=== PATIENT | female | born 1960 | race Caucasian/White ===

== ENCOUNTER 2017-01-28 23:01 | Inpatient (IN) | payer OTHER ==
[~2017-01-28] VITALS: Ht 170.2 cm; Wt 75.7 kg
[~2017-01-28 23:01] MED LIST: CETI10TA22 PO; CHOL200074 PO; FLUT100D IH; MULT1TAB52 PO; OMEG1CAP6 PO; PROAIR HFA8.5 GM INH
[2017-01-29] VITALS (9 sets, daily range): BP systolic 121–145; BP diastolic 51–80
[2017-01-29] MEDS: IV NORMAL SALINE 1000ML BAG 1,000 ML IV SCH ×3 (01:03→22:43)
[2017-01-29] MEDS: ONDANSETRON PF 4 MG/2 ML VIAL. IV PRN ×3 (01:59→14:59)
[2017-01-29] MEDS: MORPHINE SULFATE 4 MG/ML DISP.SYRIN. IV PRN ×6 (01:59→14:59)
[2017-01-29] MEDS ORDERED: fentaNYL PF VIAL 100 MCG/2 ML VIAL IV PRN ×3 (07:00→18:15)
[2017-01-29 07:32] LABS: BASO % 0 % (0-3); EOS % 0 % (0-3); HEMATOCRIT 33.3 % (36.0-47.0); HEMOGLOBIN 11.1 g/dL (12.0-15.5); LYMPH % 10 % (24-48); MEAN CORPUSCULAR HEMOGLOBIN 31 pg (25-35); MEAN CORPUSCULAR HGB CONC 33 g/dL (31-37); MEAN CORPUSCULAR VOLUME 95 fL (79-100); MONO % 5 % (0-9); NEUT % 84 % (31-73); PLATELET COUNT 203 x10^3/uL (140-400); RED BLOOD COUNT 3.52 x10^6/uL (3.50-5.40); RED CELL DISTRIBUTION WIDTH 12.8 % (11.5-14.5); WHITE BLOOD COUNT 9.9 x10^3/uL (4.0-11.0)
[2017-01-29 07:59] LABS: CALCIUM 8.7 mg/dL (8.5-10.1); CREATININE 0.8 mg/dL (0.6-1.0); GFR 74.2; POTASSIUM 4.1 mmol/L (3.5-5.1)
[2017-01-29] MEDS ORDERED: IOHEXOL 350 MG/ML 100 ML VIAL. PO ONE ×2 (08:00→14:00)
[2017-01-29] MEDS ORDERED: CONTRAST GIVEN MC PRN ×2 (08:15→14:00)
--- NOTE | 2017-01-29 09:40 | PDOC2 ---
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 Identification/Chief Complaint Chief Complaint abdominal pain Problems: Source Source: Chart review, Patient History of Present Illness Reason for Visit: Underwent laparoscopic appendectomy with Dr Cross on 01/23, her surgery had no complications, she discharged home on 01/25. She reports has had some cramping periumbilical since going home and having 1 watery stool each morning. Yesterday was the last stool. By evening the cramping pain intensified. She started vomiting and came to ER for evaluation. CT at [facility] was concerning for a sbo vs internal hernia Attempted SBFT this AM, however could not even start exam due to vomiting. No flatus or stool since admission she does feel bloated, pain is improved, although she has recently received pain meds Past Medical History Cardiovascular: No pertinent hx Pulmonary: No pertinent hx, Bronchitis, Other GI: No pertinent hx Heme/Onc: No pertinent hx Hepatobiliary: No pertinent hx Psych: No pertinent hx Rheumatologic: No pertinent hx Infectious disease: Bacterial vaginosis Renal/: No pertinent hx Endocrine: No pertinent hx Past Surgical History Past Surgical History: Appendectomy Family History Family History: Hypertension Social History ALCOHOL: none Drugs: None Current Medications Current Medications Current Medications Morphine Sulfate 4 mg PRN Q2HR PRN IV PAIN Last administered on 01/29/17 08:32 ; Start 01/29/17 at 01:00 Ondansetron HCl (Zofran) 4 mg PRN Q6HRS PRN IV NAUSEA/VOMITING Last administered on 01/29/17 08:32; Start 01/29/17 at 01:00 Sodium Chloride 1,000 ml @ 100 mls/hr Q10H IV Last administered on 01/29/17 01 :03; Start 01/29/17 at 00:45 Iohexol (Omnipaque 350 Mg/ml) 400 ml 1X ONCE PO ; Start 01/29/17 at 08:00; Stop 01/29/17 at 08:03; Status DC Info (Do NOT chart on this entry -- for MONITORING) 1 each PRN DAILY PRN MC SEE COMMENTS; Start 01/29/17 at 08:15; Stop 01/31/17 at 08:14 Active Scripts Active Flovent 100MCG Diskus (Fluticasone Propionate) 100 Mcg Disk.w.dev 1 Puff IH BID Proair Hfa Inhaler (Albuterol Sulfate) 8.5 Gm Hfa.aer.ad 1 Puff INH PRN Q6HRS PRN Reported Zyrtec (Cetirizine Hcl) 10 Mg Tablet 1 Tab PO DAILY Fish Oil 1,000 Mg Capsule (Viola-3 Fatty Acids/Fish Oil) 1 Each Capsule 1 Each PO Vitamin D-3 (Cholecalciferol (Vitamin D3)) 2,000 Unit Capsule 2,000 Unit PO Multivitamins (Multivitamin) 1 Each Tablet 1 Tab PO DAILY Allergies Allergies: Coded Allergies: No Known Drug Allergies (Unverified , 01/23/17) ROS General: YES: Chills, No: Other (fevers) PSYCHOLOGICAL ROS: No: Anxiety, Depression Eyes: No Blurry vision, No Double vision HEENT: No: Heacaches, Sore Throat Hematological and Lymphatic: No: Bleeding Problems, Blood Clots Respiratory: No: Cough, Shortness of breath Cardiovascular: No Chest Pain, No Palpitations Gastrointestinal: Yes Other (see hpi) Genitourinary: No Dysuria, No Hematuria Musculoskeletal: No Joint Pain, No Muscle Pain Neurological: No Impaired Coord/balance, No Numbness/Tingling Skin: No Pruritus, No Rash Physical Exam General: Alert, Oriented X3, Cooperative, No acute distress HEENT: PERRLA, Mucous membr. moist/pink Lungs: Clear to auscultation, Normal air movement Heart: Regular rate, Normal S1, Normal S2, No murmurs Abdomen: Soft, Other (moderate distention, mildly tendern periumbilical area, no gaurding or rebound tenderness, no peritoneal signs ) Extremities: No clubbing, No cyanosis Skin: No rashes, No breakdown Neuro: Normal speech, Sensation intact Psych/Mental Status: Mental status NL, Mood NL MUSCULOSKELETAL: No deformity, No swelling Vitals VITALS Vital Signs Date Time Temp Pulse Resp B/P (MAP) Pulse Ox O2 Delivery O2 Flow Rate FiO2 01/29/17 08:32 93 01/29/17 07:00 97.9 53 20 121/67 (85) Room Air 97.9 Labs Labs Laboratory Tests Test 01/29/17 06:55 White Blood Count 9.9 x10^3/uL (4.0-11.0) Red Blood Count 3.52 x10^6/uL (3.50-5.40) Hemoglobin 11.1 g/dL (12.0-15.5) Hematocrit 33.3 % (36.0-47.0) Mean Corpuscular Volume 95 fL (79-100) Mean Corpuscular Hemoglobin 31 pg (25-35) Mean Corpuscular Hemoglobin Concent 33 g/dL (31-37) Red Cell Distribution Width 12.8 % (11.5-14.5) Platelet Count 203 x10^3/uL (140-400) Neutrophils (%) (Auto) 84 % (31-73) Lymphocytes (%) (Auto) 10 % (24-48) Monocytes (%) (Auto) 5 % (0-9) Eosinophils (%) (Auto) 0 % (0-3) Basophils (%) (Auto) 0 % (0-3) Neutrophils # (Auto) 8.4 x10^3uL (1.8-7.7) Lymphocytes # (Auto) 1.0 x10^3/uL (1.0-4.8) Monocytes # (Auto) 0.5 x10^3/uL (0.0-1.1) Eosinophils # (Auto) 0.0 x10^3/uL (0.0-0.7) Basophils # (Auto) 0.0 x10^3/uL (0.0-0.2) Sodium Level 141 mmol/L (136-145) Potassium Level 4.1 mmol/L (3.5-5.1) Chloride Level 105 mmol/L (98-107) Carbon Dioxide Level 28 mmol/L (21-32) Anion Gap 8 (6-14) Blood Urea Nitrogen 12 mg/dL (7-20) Creatinine 0.8 mg/dL (0.6-1.0) Estimated GFR (Cockcroft-Gault) 74.2 Glucose Level 116 mg/dL (70-99) Calcium Level 8.7 mg/dL (8.5-10.1) Laboratory Tests Test 01/29/17 06:55 White Blood Count 9.9 x10^3/uL (4.0-11.0) Red Blood Count 3.52 x10^6/uL (3.50-5.40) Hemoglobin 11.1 g/dL (12.0-15.5) Hematocrit 33.3 % (36.0-47.0) Mean Corpuscular Volume 95 fL (79-100) Mean Corpuscular Hemoglobin 31 pg (25-35) Mean Corpuscular Hemoglobin Concent 33 g/dL (31-37) Red Cell Distribution Width 12.8 % (11.5-14.5) Platelet Count 203 x10^3/uL (140-400) Neutrophils (%) (Auto) 84 % (31-73) Lymphocytes (%) (Auto) 10 % (24-48) Monocytes (%) (Auto) 5 % (0-9) Eosinophils (%) (Auto) 0 % (0-3) Basophils (%) (Auto) 0 % (0-3) Neutrophils # (Auto) 8.4 x10^3uL (1.8-7.7) Lymphocytes # (Auto) 1.0 x10^3/uL (1.0-4.8) Monocytes # (Auto) 0.5 x10^3/uL (0.0-1.1) Eosinophils # (Auto) 0.0 x10^3/uL (0.0-0.7) Basophils # (Auto) 0.0 x10^3/uL (0.0-0.2) Sodium Level 141 mmol/L (136-145) Potassium Level 4.1 mmol/L (3.5-5.1) Chloride Level 105 mmol/L (98-107) Carbon Dioxide Level 28 mmol/L (21-32) Anion Gap 8 (6-14) Blood Urea Nitrogen 12 mg/dL (7-20) Creatinine 0.8 mg/dL (0.6-1.0) Estimated GFR (Cockcroft-Gault) 74.2 Glucose Level 116 mg/dL (70-99) Calcium Level 8.7 mg/dL (8.5-10.1) Assessment/Plan Assessment/Plan CT reviewed SBO vs internal hernia abd pain, distention, N/V appendectomy 5 days PO asthma needs NG for decompression--once decompressed, SBFT with GG to assess STACEY SANTANA MD 01/29/17 8836: CONSULT Allergies Allergies: Coded Allergies: No Known Drug Allergies (Unverified , 01/23/17) Assessment/Plan Assessment/Plan Pt seen and examined independently by myself; HPI reviewed, recent lap appy, had prior loose stools, now with severe, crampy abdominal pain, vomiting, no flatus while in hospital; CT at [facility] raises concern for internal hernia with poss SBO; PMH/PSH/ROS/SH as above, reviewed; exam: alert, appears in moderate distress, uncomfortable, NG in place, no neck tenderness, lungs clear, heart RR and R, abdomen distended, tender diffusely to palpation, ext neg for edema, neuro function grossly intact all 4 extremities; CT reviewed; Attempted contrast study to further clarify bowel process, however initial films show little progression; I have reviewed the CT and combined with my examination I would advise for surgical exploration. I discussed this with the patient and her and reviewed the risks/benefits of surgery. The risks include bleeding, infection, open surgery, visceral injury, pain, anastomotic leak, anesthetic risk, negative laparotomy; they understand and would like to proceed. REGINA DAN APRN Jan 29, 2017 09:40 STACEY SANTANA MD Jan 29, 2017 17:19
--- NOTE | 2017-01-29 11:43 | RAD ---
Portable abdomen, 01/29/2017, 11:29 AM: History: Check NG tube placement A supine view of the upper abdomen demonstrates an NG tube extending into the body of the stomach. The upper abdominal gas pattern is unremarkable. There is a small amount of pleural fluid and linear atelectasis in the right base, as also noted on the recent CT study. IMPRESSION: The NG tube extends into the body of the stomach.
[2017-01-29] MEDS ORDERED: PHENOL ORAL SPRAY 177ML BOTTLE. PO PRN (11:45)
--- NOTE | 2017-01-29 15:00 | PDOC1 ---
History and Physical Date of Admission Date of Admission DATE: 01/29/17 TIME: 0900 Identification/Chief Complaint Chief Complaint abd pain Problems: Source Source: Caregiver, Patient History of Present Illness History of Present Illness Mrs Jc is a 56 y/o woman with recent laparoscopic appendectomy with Dr Cross on 01/23, who presented to the ER at [facility] with severe cramping and nausea. She related that she had had mild cramping in the periumbilical area since discharge on the ,about a 4/10 on the pain scale with daily water BM x1. Yesterday evening, however, cramping got much worse up to 10/10, and she started vomiting. When calling the surgeon's office, she was advised to go to [facility] ER for r/o C.diff. In the ER, a CT was concerning for SBO vs internal hernia, and she was transferred to [facility] for further W/U. Her last BM was yesterday morning, loose but not watery. Past Medical History Pulmonary: Bronchitis GI: Other (recent sorin.y) Infectious disease: Bacterial vaginosis Past Surgical History Past Surgical History: Appendectomy Family History Family History: Hypertension Social History Smoke: No ALCOHOL: none Drugs: None Current Medications Current Medications Current Medications Morphine Sulfate 4 mg PRN Q2HR PRN IV PAIN Last administered on 01/29/17 11:02 ; Start 01/29/17 at 01:00 Ondansetron HCl (Zofran) 4 mg PRN Q6HRS PRN IV NAUSEA/VOMITING Last administered on 01/29/17 08:32; Start 01/29/17 at 01:00 Sodium Chloride 1,000 ml @ 100 mls/hr Q10H IV Last administered on 01/29/17 11 :03; Start 01/29/17 at 00:45 Iohexol (Omnipaque 350 Mg/ml) 400 ml 1X ONCE PO ; Start 01/29/17 at 08:00; Stop 01/29/17 at 08:03; Status DC Info (Do NOT chart on this entry -- for MONITORING) 1 each PRN DAILY PRN MC SEE COMMENTS; Start 01/29/17 at 08:15; Stop 01/31/17 at 08:14 Throat Lozenges (Chloraseptic) 1 spray PRN Q2HR PRN PO SORE THROAT; Start at 11:45 Iohexol (Omnipaque 350 Mg/ml) 100 ml 1X ONCE PO ; Start 01/29/17 at 14:00; Stop 01/29/17 at 14:01; Status DC Info (Do NOT chart on this entry -- for MONITORING) 1 each PRN DAILY PRN MC SEE COMMENTS; Start 01/29/17 at 14:00; Stop 01/31/17 at 13:59 Active Scripts Active Flovent 100MCG Diskus (Fluticasone Propionate) 100 Mcg Disk.w.dev 1 Puff IH BID Proair Hfa Inhaler (Albuterol Sulfate) 8.5 Gm Hfa.aer.ad 1 Puff INH PRN Q6HRS PRN Reported Zyrtec (Cetirizine Hcl) 10 Mg Tablet 1 Tab PO DAILY Fish Oil 1,000 Mg Capsule (Rosenberg-3 Fatty Acids/Fish Oil) 1 Each Capsule 1 Each PO Vitamin D-3 (Cholecalciferol (Vitamin D3)) 2,000 Unit Capsule 2,000 Unit PO Multivitamins (Multivitamin) 1 Each Tablet 1 Tab PO DAILY Allergies Allergies: Coded Allergies: No Known Drug Allergies (Unverified , 01/23/17) ROS General: No: Chills, Malaise PSYCHOLOGICAL ROS: No: Anxiety Eyes: No Blurry vision HEENT: No: Heacaches ALLERGY AND IMMUNOLOGY: No: Seasonal Allergies Hematological and Lymphatic: No: Bleeding Problems ENDOCRINE: YES: Hot Flashes Respiratory: No: Cough, Hemoptysis, Shortness of breath Cardiovascular: No Chest Pain, No Palpitations Gastrointestinal: Yes Nausea, Yes Vomiting, Yes Abdominal Pain Musculoskeletal: No Joint Pain Neurological: No Confusion, No Dizziness Skin: No Dry Skin Physical Exam General: Alert, Oriented X3, Cooperative, mild distress Lungs: Clear to auscultation Heart: RRR Abdomen: Soft, Other (gen mild TTP) Extremities: No clubbing, No edema Skin: No rashes Neuro: Normal speech Psych/Mental Status: Mental status NL Vitals Vitals Vital Signs Date Time Temp Pulse Resp B/P (MAP) Pulse Ox O2 Delivery O2 Flow Rate FiO2 01/29/17 11:32 Room Air 01/29/17 11:02 93 01/29/17 11:00 97.9 56 20 131/56 (81) 97.9 Labs Labs Laboratory Tests Test 01/29/17 06:55 White Blood Count 9.9 x10^3/uL (4.0-11.0) Red Blood Count 3.52 x10^6/uL (3.50-5.40) Hemoglobin 11.1 g/dL (12.0-15.5) Hematocrit 33.3 % (36.0-47.0) Mean Corpuscular Volume 95 fL (79-100) Mean Corpuscular Hemoglobin 31 pg (25-35) Mean Corpuscular Hemoglobin Concent 33 g/dL (31-37) Red Cell Distribution Width 12.8 % (11.5-14.5) Platelet Count 203 x10^3/uL (140-400) Neutrophils (%) (Auto) 84 % (31-73) Lymphocytes (%) (Auto) 10 % (24-48) Monocytes (%) (Auto) 5 % (0-9) Eosinophils (%) (Auto) 0 % (0-3) Basophils (%) (Auto) 0 % (0-3) Neutrophils # (Auto) 8.4 x10^3uL (1.8-7.7) Lymphocytes # (Auto) 1.0 x10^3/uL (1.0-4.8) Monocytes # (Auto) 0.5 x10^3/uL (0.0-1.1) Eosinophils # (Auto) 0.0 x10^3/uL (0.0-0.7) Basophils # (Auto) 0.0 x10^3/uL (0.0-0.2) Sodium Level 141 mmol/L (136-145) Potassium Level 4.1 mmol/L (3.5-5.1) Chloride Level 105 mmol/L (98-107) Carbon Dioxide Level 28 mmol/L (21-32) Anion Gap 8 (6-14) Blood Urea Nitrogen 12 mg/dL (7-20) Creatinine 0.8 mg/dL (0.6-1.0) Estimated GFR (Cockcroft-Gault) 74.2 Glucose Level 116 mg/dL (70-99) Calcium Level 8.7 mg/dL (8.5-10.1) Laboratory Tests Test 01/29/17 06:55 White Blood Count 9.9 x10^3/uL (4.0-11.0) Red Blood Count 3.52 x10^6/uL (3.50-5.40) Hemoglobin 11.1 g/dL (12.0-15.5) Hematocrit 33.3 % (36.0-47.0) Mean Corpuscular Volume 95 fL (79-100) Mean Corpuscular Hemoglobin 31 pg (25-35) Mean Corpuscular Hemoglobin Concent 33 g/dL (31-37) Red Cell Distribution Width 12.8 % (11.5-14.5) Platelet Count 203 x10^3/uL (140-400) Neutrophils (%) (Auto) 84 % (31-73) Lymphocytes (%) (Auto) 10 % (24-48) Monocytes (%) (Auto) 5 % (0-9) Eosinophils (%) (Auto) 0 % (0-3) Basophils (%) (Auto) 0 % (0-3) Neutrophils # (Auto) 8.4 x10^3uL (1.8-7.7) Lymphocytes # (Auto) 1.0 x10^3/uL (1.0-4.8) Monocytes # (Auto) 0.5 x10^3/uL (0.0-1.1) Eosinophils # (Auto) 0.0 x10^3/uL (0.0-0.7) Basophils # (Auto) 0.0 x10^3/uL (0.0-0.2) Sodium Level 141 mmol/L (136-145) Potassium Level 4.1 mmol/L (3.5-5.1) Chloride Level 105 mmol/L (98-107) Carbon Dioxide Level 28 mmol/L (21-32) Anion Gap 8 (6-14) Blood Urea Nitrogen 12 mg/dL (7-20) Creatinine 0.8 mg/dL (0.6-1.0) Estimated GFR (Cockcroft-Gault) 74.2 Glucose Level 116 mg/dL (70-99) Calcium Level 8.7 mg/dL (8.5-10.1) VTE Prophylaxis Ordered VTE Prophylaxis Devices: No VTE Pharmacological Prophylaxi: Yes Assessment/Plan Assessment/Plan Mrs Jc is a 56 y/o woman with recent lap sorin.y presenting with severe abd pain and N/V. CT is suspicious for SPO. SBFT has been ordered and is ongoing. transit appears significantly delayed. Surgical service following. Pain regimen with IV morphine; titrate to comfort. Consider Reglan, but await surgeon's approval. NPO. NGT in place, but no suction until radiographic studies completed. Backorder liver panel and lipase to r/o other etiologies. Prophylaxis: IV H2B LARS BHATT MD Jan 29, 2017 15:00
[2017-01-29] MEDS ORDERED: MORPHINE SULFATE 4 MG/ML DISP.SYRIN. IV PRN ×2 (16:45→18:15)
[2017-01-29 17:10] LABS: ALBUMIN 3.7 g/dL (3.4-5.0); DIRECT BILIRUBIN 0.2 mg/dL (0.0-0.2); TOTAL BILIRUBIN 0.6 mg/dL (0.2-1.0); TOTAL PROTEIN 7.1 g/dL (6.4-8.2)
[2017-01-29] MEDS ORDERED: IV RINGERS,LACTATED 1000ML 1,000 ML IV SCH (18:10)
[2017-01-29] MEDS ORDERED: SUCCINYLCHOLINE 200 MG/10 ML VIAL. ONE (18:10)
[2017-01-29] MEDS ORDERED: ROCURONIUM 50 MG/5 ML VIAL. ONE (18:10)
[2017-01-29] MEDS ORDERED: LIDOCAINE 2% PF Vial for OR 5 ML VIAL. ONE (18:14)
[2017-01-29] MEDS ORDERED: fentaNYL PF VIAL 250 MCG/5 ML VIAL ONE (18:14)
[2017-01-29] MEDS ORDERED: PROPOFOL 20 ML IV ONE (18:14)
[2017-01-29] MEDS ORDERED: DEXAMETHASONE SOD PHOS 20 MG/5 ML VIAL. ONE (18:14)
[2017-01-29] MEDS ORDERED: ONDANSETRON PF 4 MG/2 ML VIAL. ONE (18:14)
[2017-01-29] MEDS ORDERED: MEPERIDINE PF 25 MG/ML VIAL. IV PRN (18:15)
[2017-01-29] MEDS ORDERED: MIDAZOLAM HCL/PF 2 MG/2 ML VIAL. IV PRN ×2 (18:15)
[2017-01-29] MEDS ORDERED: PROCHLORPERAZINE 10 MG/2 ML VIAL. IV PRN (18:15)
[2017-01-29] MEDS ORDERED: LIDOCAINE 1% 1 ML SYRINGE. ID PRN (18:15)
[2017-01-29] MEDS ORDERED: HYDROmorphone 2 MG/ML VIAL IV PRN (18:15)
[2017-01-29] MEDS ORDERED: diphenhydrAMINE 50 MG/ML VIAL IV PRN (18:15)
[2017-01-29] MEDS ORDERED: PIPERACILLIN/TAZOBACTAM 3.375 GM in IV NORMAL SALINE 50ML 50 ML IV ONE (19:15)
[2017-01-29] MEDS ORDERED: NEOSTIGMINE METHYLSULFATE 5 MG/5 ML SYRINGE. ONE (20:05)
[2017-01-29] MEDS ORDERED: GLYCOPYRROLATE 1 MG/5 ML VIAL. ONE (20:05)
[2017-01-29] MEDS ORDERED: SEVOFLURANE > 120 MINUTES. IH ONE (20:50)
--- NOTE | 2017-01-29 21:05 | PDOC4 ---
Operative Note Operative Note Operative Note: Preoperative Diagnosis: Small bowel obstruction, internal hernia Postoperative Diagnosis: Same Procedure: Exploratory laparoscopy, exploratory laparotomy, reduction of internal hernia, cecopexy Surgeon: Stuart Martinez.: Ester ELLIS Anesthesia: Gen. EBL: 25 mL Specimen: abdominal fluid cultures to microbiology Drains: None Complications: None Indication: The patient is a 56-year-old female who recently underwent a laparoscopic appendectomy. Postoperatively she had significant diarrhea however over the last 24 hours reported to the emergency department with increasing abdominal pain and vomiting. Her evaluation included a CT scan which raised concern for an internal hernia with mesenteric twisting. Based on her clinical and radiographic findings we advised for surgical intervention. Plan is to proceed with laparoscopy initially. However the patient understands the potential of needing a laparotomy as well as a bowel resection. Other risks of surgery were discussed which include bleeding, infection, hernia, anastomotic leak, pain, recurrent obstruction, anesthetic risk, visceral injury, potential need for additional surgery or procedure. She understands and would like to proceed. Description: The patient was taken to the operating room and placed supine on the operating table. Gen. anesthesia was performed. The abdomen was prepped with ChloraPrep and draped in a standard surgical manner. A small supraumbilical incision was made in the skin through which a Veress needle was inserted and the pneumoperitoneum was created. A visualized 5 mm trocar was inserted and the laparoscope is introduced. Initial inspection showed a significant amount of turbid ascitic fluid. Multiple loops of small bowel were visualized that appeared ischemic with concerns over viability. Given these findings I felt an open exploration was appropriate. A vertical midline incision was then made in the skin with a scalpel. Cautery dissection was carried down to the fascia. The fascia was then opened for the length of the incision. The Omni retractor was used for the remainder of the case to facilitate exposure. Nearly 2 L of turbid fluid was suctioned from the abdomen. We did obtain cultures of the fluid which were sent to microbiology. There were again several loops of what appeared to be distal small bowel that had questionable viability with marked serosal inflammatory change. We began running the small bowel in its entirety. Starting at the ligament of Treitz the bowel was run from proximal to distal. The proximal small bowel showed some mild dilation but appeared viable with minimal to no inflammatory change. As we approached the ileum we began to see more signs of inflammation with serositis and marked thickening of the mesentery. There appeared to be some resistance to running the distal small bowel and manually I was able to gradually free up the ileum. The cecum and ascending colon were very mobile with the cecum resting medially crossing the midline. The staple line of the appendectomy appeared well intact with no signs of disruption. There was an inflammatory reaction however at the site of the appendectomy that seemed to act as a fixed point to a portion of the ileum which was very mobile. As was noted on the CT scan this led to a whirling effect around this fixed point which seem to affect primarily the mesentery of the ileum. In the course of running the small bowel and freeing it away from the cecum we relieved the twisting effect on the mesentery effectively reducing a form of an internal hernia. The color of the ileum improved rapidly and significantly. In a short amount of time the color pinked up to a nearly normal appearance with only some resultant secondary inflammatory change. We ran the small bowel several times again and things continue to improve with no further signs of compromise. Also there was no sign of perforation or other abnormality. I elected to perform a cecopexy to try to restore the cecum and healing appendiceal stump to a more physiologic location. A few 2-0 vicryl sutures were used to secure the cecum in the right lower quadrant. The abdominal cavity was then irrigated with sterile saline which was also suctioned. The stomach and duodenum appeared normal. The colon also appeared normal apart from some redundancy and gaseous distention. We ran the small bowel again and all segments remained viable. The fascia was then closed with a running 1 PDS suture. The subcutaneous tissue was approximated with 3-0 Vicryl. The skin was then closed with a 4-0 Monocryl running suture. Steri- Strips and a sterile dressing were then applied. The patient tolerated the procedure in stable condition was sent to the recovery room. At the end of the case all counts were correct. STACEY SANTANA MD Jan 29, 2017 21:05
[2017-01-29] MEDS: FAMOTIDINE 20 MG/2 ML VIAL IVP SCH (22:39)
[2017-01-30] VITALS (7 sets, daily range): BP systolic 121–143; BP diastolic 63–74
[2017-01-30 05:13] LABS: BASO % 0 % (0-3); EOS % 0 % (0-3); HEMOGLOBIN 11.1 g/dL (12.0-15.5); LYMPH # 0.7 x10^3/uL (1.0-4.8); LYMPH % 6 % (24-48); MEAN CORPUSCULAR HEMOGLOBIN 31 pg (25-35); MEAN CORPUSCULAR HGB CONC 33 g/dL (31-37); MEAN CORPUSCULAR VOLUME 95 fL (79-100); MONO % 8 % (0-9); NEUT % 86 % (31-73); PLATELET COUNT 204 x10^3/uL (140-400); RED BLOOD COUNT 3.58 x10^6/uL (3.50-5.40); RED CELL DISTRIBUTION WIDTH 12.9 % (11.5-14.5); WHITE BLOOD COUNT 12.9 x10^3/uL (4.0-11.0)
[2017-01-30 05:40] LABS: CALCIUM 8.1 mg/dL (8.5-10.1); CREATININE 0.9 mg/dL (0.6-1.0); GFR 64.8; POTASSIUM 4.1 mmol/L (3.5-5.1)
--- NOTE | 2017-01-30 07:24 | RAD ---
Small bowel series-incomplete study, 01/29/2017: History: Pain, nausea, possible small bowel obstruction Initially the patient was too nauseous to ingest the oral contrast material. Following placement of an NG tube on the floor, we were able to perform the study. The preliminary image demonstrates the NG tube extending into the body of the stomach. Gas is present in large and small bowel in a nonspecific pattern. Serial radiographs were obtained following infusion 500 cc of nonionic contrast through the patient's NG tube. At 1 hour there is only minimal extension of contrast into the proximal duodenum, which is not dilated. At approximately 3 hours only a small amount of contrast had extended into the jejunum. There is only slight prominence of a poorly opacified small bowel loop in the upper pelvis. At this point the examination was terminated by the surgeon due to the patient's poor clinical condition. The majority of the small bowel was therefore not visualized. No fluoroscopy was performed.
[2017-01-30] MEDS: IV NORMAL SALINE 1000ML BAG 1,000 ML IV SCH ×3 (09:00→19:57)
--- NOTE | 2017-01-30 09:05 | PDOC ---
REGINA DAN CHANNEL [employer]ENER [employer]ES 01/30/17 0905: SURGICAL PROGRESS NOTE Subjective feeling better resting Vital Signs Vital Signs Date Time Temp Pulse Resp B/P (MAP) Pulse Ox O2 Delivery O2 Flow Rate FiO2 01/30/17 07:00 99.2 70 18 139/72 (94) 97 2.0 99.2 01/30/17 03:10 Nasal Cannula I&O Intake and Output 01/30/17 06:59 Intake Total 2975 ml Output Total 3075 ml Balance -100 ml Intake Oral 30 ml IV Total 2945 ml Output Urine Total 700 ml Gastric Drainage Total 350 ml Estimated Blood Loss 25 ml Other 2000 ml PATIENT HAS A RICHARDS: Yes (DC POD#2) General: Alert, Oriented X3, Cooperative, No acute distress Abdomen: Soft, Other (mildly distended, dressing dry, incisional TTP ) Labs Laboratory Tests Test 01/29/17 06:55 01/30/17 04:37 White Blood Count 9.9 x10^3/uL (4.0-11.0) 12.9 x10^3/uL (4.0-11.0) Red Blood Count 3.52 x10^6/uL (3.50-5.40) 3.58 x10^6/uL (3.50-5.40) Hemoglobin 11.1 g/dL (12.0-15.5) 11.1 g/dL (12.0-15.5) Hematocrit 33.3 % (36.0-47.0) 34.0 % (36.0-47.0) Mean Corpuscular Volume 95 fL (79-100) 95 fL (79-100) Mean Corpuscular Hemoglobin 31 pg (25-35) 31 pg (25-35) Mean Corpuscular Hemoglobin Concent 33 g/dL (31-37) 33 g/dL (31-37) Red Cell Distribution Width 12.8 % (11.5-14.5) 12.9 % (11.5-14.5) Platelet Count 203 x10^3/uL (140-400) 204 x10^3/uL (140-400) Neutrophils (%) (Auto) 84 % (31-73) 86 % (31-73) Lymphocytes (%) (Auto) 10 % (24-48) 6 % (24-48) Monocytes (%) (Auto) 5 % (0-9) 8 % (0-9) Eosinophils (%) (Auto) 0 % (0-3) 0 % (0-3) Basophils (%) (Auto) 0 % (0-3) 0 % (0-3) Neutrophils # (Auto) 8.4 x10^3uL (1.8-7.7) 11.0 x10^3uL (1.8-7.7) Lymphocytes # (Auto) 1.0 x10^3/uL (1.0-4.8) 0.7 x10^3/uL (1.0-4.8) Monocytes # (Auto) 0.5 x10^3/uL (0.0-1.1) 1.1 x10^3/uL (0.0-1.1) Eosinophils # (Auto) 0.0 x10^3/uL (0.0-0.7) 0.0 x10^3/uL (0.0-0.7) Basophils # (Auto) 0.0 x10^3/uL (0.0-0.2) 0.0 x10^3/uL (0.0-0.2) Sodium Level 141 mmol/L (136-145) 141 mmol/L (136-145) Potassium Level 4.1 mmol/L (3.5-5.1) 4.1 mmol/L (3.5-5.1) Chloride Level 105 mmol/L (98-107) 105 mmol/L (98-107) Carbon Dioxide Level 28 mmol/L (21-32) 30 mmol/L (21-32) Anion Gap 8 (6-14) 6 (6-14) Blood Urea Nitrogen 12 mg/dL (7-20) 11 mg/dL (7-20) Creatinine 0.8 mg/dL (0.6-1.0) 0.9 mg/dL (0.6-1.0) Estimated GFR (Cockcroft-Gault) 74.2 64.8 Glucose Level 116 mg/dL (70-99) 131 mg/dL (70-99) Calcium Level 8.7 mg/dL (8.5-10.1) 8.1 mg/dL (8.5-10.1) Total Bilirubin 0.6 mg/dL (0.2-1.0) Direct Bilirubin 0.2 mg/dL (0.0-0.2) Aspartate Amino Transf (AST/SGOT) 67 U/L (15-37) Alanine Aminotransferase (ALT/SGPT) 93 U/L (14-59) Alkaline Phosphatase 63 U/L (46-116) Total Protein 7.1 g/dL (6.4-8.2) Albumin 3.7 g/dL (3.4-5.0) Lipase 73 U/L (73-393) Laboratory Tests Test 01/30/17 04:37 White Blood Count 12.9 x10^3/uL (4.0-11.0) Red Blood Count 3.58 x10^6/uL (3.50-5.40) Hemoglobin 11.1 g/dL (12.0-15.5) Hematocrit 34.0 % (36.0-47.0) Mean Corpuscular Volume 95 fL (79-100) Mean Corpuscular Hemoglobin 31 pg (25-35) Mean Corpuscular Hemoglobin Concent 33 g/dL (31-37) Red Cell Distribution Width 12.9 % (11.5-14.5) Platelet Count 204 x10^3/uL (140-400) Neutrophils (%) (Auto) 86 % (31-73) Lymphocytes (%) (Auto) 6 % (24-48) Monocytes (%) (Auto) 8 % (0-9) Eosinophils (%) (Auto) 0 % (0-3) Basophils (%) (Auto) 0 % (0-3) Neutrophils # (Auto) 11.0 x10^3uL (1.8-7.7) Lymphocytes # (Auto) 0.7 x10^3/uL (1.0-4.8) Monocytes # (Auto) 1.1 x10^3/uL (0.0-1.1) Eosinophils # (Auto) 0.0 x10^3/uL (0.0-0.7) Basophils # (Auto) 0.0 x10^3/uL (0.0-0.2) Sodium Level 141 mmol/L (136-145) Potassium Level 4.1 mmol/L (3.5-5.1) Chloride Level 105 mmol/L (98-107) Carbon Dioxide Level 30 mmol/L (21-32) Anion Gap 6 (6-14) Blood Urea Nitrogen 11 mg/dL (7-20) Creatinine 0.9 mg/dL (0.6-1.0) Estimated GFR (Cockcroft-Gault) 64.8 Glucose Level 131 mg/dL (70-99) Calcium Level 8.1 mg/dL (8.5-10.1) Assessment/Plan POD#1 xlap, reduction internal hernia, 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
--- NOTE | 2017-01-30 12:29 | ACF ---
Admission Forms Criteria INTESTINAL OBSTRUCTION Clinical Indications for Admission to Inpatient Care (Place 'X' for any and all applicable criteria): Admission is indicated for ANY ONE of the following (1)(2)(3)(4)(5): [X]I. Partial bowel obstruction [ ]II. Complete bowel obstruction Extended stay beyond goal length of stay may be needed for(1)(4)(12(: [ ]a) Identified etiology (eg, hernia, volvulus, cancer with obstruction) requiring intervention [ ]b) Gallstone ileus [ ]c) Surgical intervention [ ]d) Acute comorbid illness (eg, electrolyte imbalance, hypovolemia, renal failure) The original [employer] content created by [employer] has been revised. The portions of the content which have been revised are identified through the use of italic text or in bold, and [facility] has neither reviewed nor approved the modified material. All other unmodified content is copyright [employer]. Please see references footnoted in the original [facility] edition 2016 Admission Criteria Met?: Yes ORTEGA GUERRERO Jan 30, 2017 12:29
--- NOTE | 2017-01-30 12:38 | PDOC ---
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 labs daily dvt, gi ppx History of Present Illness History of Present Illness no flatus or BM use APPLIED TECHNOLOGIST every 2-3 hours, not much on NGT , 900cc suction Vitals Vitals Vital Signs Date Time Temp Pulse Resp B/P (MAP) Pulse Ox O2 Delivery O2 Flow Rate FiO2 01/30/17 10:53 97.9 64 14 132/67 (88) 96 Nasal Cannula 2.0 97.9 Physical Exam General: Alert, Oriented X3, Cooperative, No acute distress Heart: Regular rate, Normal S1, Normal S2, No murmurs Lungs: Clear Abdomen: Soft, Other (mildly distended, dressing dry, incisional TTP ) Extremities: No clubbing, No edema Skin: No rashes Labs LABS Laboratory Tests Test 01/30/17 04:37 White Blood Count 12.9 x10^3/uL (4.0-11.0) Red Blood Count 3.58 x10^6/uL (3.50-5.40) Hemoglobin 11.1 g/dL (12.0-15.5) Hematocrit 34.0 % (36.0-47.0) Mean Corpuscular Volume 95 fL (79-100) Mean Corpuscular Hemoglobin 31 pg (25-35) Mean Corpuscular Hemoglobin Concent 33 g/dL (31-37) Red Cell Distribution Width 12.9 % (11.5-14.5) Platelet Count 204 x10^3/uL (140-400) Neutrophils (%) (Auto) 86 % (31-73) Lymphocytes (%) (Auto) 6 % (24-48) Monocytes (%) (Auto) 8 % (0-9) Eosinophils (%) (Auto) 0 % (0-3) Basophils (%) (Auto) 0 % (0-3) Neutrophils # (Auto) 11.0 x10^3uL (1.8-7.7) Lymphocytes # (Auto) 0.7 x10^3/uL (1.0-4.8) Monocytes # (Auto) 1.1 x10^3/uL (0.0-1.1) Eosinophils # (Auto) 0.0 x10^3/uL (0.0-0.7) Basophils # (Auto) 0.0 x10^3/uL (0.0-0.2) Sodium Level 141 mmol/L (136-145) Potassium Level 4.1 mmol/L (3.5-5.1) Chloride Level 105 mmol/L (98-107) Carbon Dioxide Level 30 mmol/L (21-32) Anion Gap 6 (6-14) Blood Urea Nitrogen 11 mg/dL (7-20) Creatinine 0.9 mg/dL (0.6-1.0) Estimated GFR (Cockcroft-Gault) 64.8 Glucose Level 131 mg/dL (70-99) Calcium Level 8.1 mg/dL (8.5-10.1) Review of Systems Review of Systems no fever, chills, sob or chest pain Comment Review of Relevant I have reviewed the following items александр (where applicable) has been applied. Labs Laboratory Tests Test 01/29/17 06:55 01/30/17 04:37 White Blood Count 9.9 x10^3/uL (4.0-11.0) 12.9 x10^3/uL (4.0-11.0) Red Blood Count 3.52 x10^6/uL (3.50-5.40) 3.58 x10^6/uL (3.50-5.40) Hemoglobin 11.1 g/dL (12.0-15.5) 11.1 g/dL (12.0-15.5) Hematocrit 33.3 % (36.0-47.0) 34.0 % (36.0-47.0) Mean Corpuscular Volume 95 fL (79-100) 95 fL (79-100) Mean Corpuscular Hemoglobin 31 pg (25-35) 31 pg (25-35) Mean Corpuscular Hemoglobin Concent 33 g/dL (31-37) 33 g/dL (31-37) Red Cell Distribution Width 12.8 % (11.5-14.5) 12.9 % (11.5-14.5) Platelet Count 203 x10^3/uL (140-400) 204 x10^3/uL (140-400) Neutrophils (%) (Auto) 84 % (31-73) 86 % (31-73) Lymphocytes (%) (Auto) 10 % (24-48) 6 % (24-48) Monocytes (%) (Auto) 5 % (0-9) 8 % (0-9) Eosinophils (%) (Auto) 0 % (0-3) 0 % (0-3) Basophils (%) (Auto) 0 % (0-3) 0 % (0-3) Neutrophils # (Auto) 8.4 x10^3uL (1.8-7.7) 11.0 x10^3uL (1.8-7.7) Lymphocytes # (Auto) 1.0 x10^3/uL (1.0-4.8) 0.7 x10^3/uL (1.0-4.8) Monocytes # (Auto) 0.5 x10^3/uL (0.0-1.1) 1.1 x10^3/uL (0.0-1.1) Eosinophils # (Auto) 0.0 x10^3/uL (0.0-0.7) 0.0 x10^3/uL (0.0-0.7) Basophils # (Auto) 0.0 x10^3/uL (0.0-0.2) 0.0 x10^3/uL (0.0-0.2) Sodium Level 141 mmol/L (136-145) 141 mmol/L (136-145) Potassium Level 4.1 mmol/L (3.5-5.1) 4.1 mmol/L (3.5-5.1) Chloride Level 105 mmol/L (98-107) 105 mmol/L (98-107) Carbon Dioxide Level 28 mmol/L (21-32) 30 mmol/L (21-32) Anion Gap 8 (6-14) 6 (6-14) Blood Urea Nitrogen 12 mg/dL (7-20) 11 mg/dL (7-20) Creatinine 0.8 mg/dL (0.6-1.0) 0.9 mg/dL (0.6-1.0) Estimated GFR (Cockcroft-Gault) 74.2 64.8 Glucose Level 116 mg/dL (70-99) 131 mg/dL (70-99) Calcium Level 8.7 mg/dL (8.5-10.1) 8.1 mg/dL (8.5-10.1) Total Bilirubin 0.6 mg/dL (0.2-1.0) Direct Bilirubin 0.2 mg/dL (0.0-0.2) Aspartate Amino Transf (AST/SGOT) 67 U/L (15-37) Alanine Aminotransferase (ALT/SGPT) 93 U/L (14-59) Alkaline Phosphatase 63 U/L (46-116) Total Protein 7.1 g/dL (6.4-8.2) Albumin 3.7 g/dL (3.4-5.0) Lipase 73 U/L (73-393) Laboratory Tests Test 01/30/17 04:37 White Blood Count 12.9 x10^3/uL (4.0-11.0) Red Blood Count 3.58 x10^6/uL (3.50-5.40) Hemoglobin 11.1 g/dL (12.0-15.5) Hematocrit 34.0 % (36.0-47.0) Mean Corpuscular Volume 95 fL (79-100) Mean Corpuscular Hemoglobin 31 pg (25-35) Mean Corpuscular Hemoglobin Concent 33 g/dL (31-37) Red Cell Distribution Width 12.9 % (11.5-14.5) Platelet Count 204 x10^3/uL (140-400) Neutrophils (%) (Auto) 86 % (31-73) Lymphocytes (%) (Auto) 6 % (24-48) Monocytes (%) (Auto) 8 % (0-9) Eosinophils (%) (Auto) 0 % (0-3) Basophils (%) (Auto) 0 % (0-3) Neutrophils # (Auto) 11.0 x10^3uL (1.8-7.7) Lymphocytes # (Auto) 0.7 x10^3/uL (1.0-4.8) Monocytes # (Auto) 1.1 x10^3/uL (0.0-1.1) Eosinophils # (Auto) 0.0 x10^3/uL (0.0-0.7) Basophils # (Auto) 0.0 x10^3/uL (0.0-0.2) Sodium Level 141 mmol/L (136-145) Potassium Level 4.1 mmol/L (3.5-5.1) Chloride Level 105 mmol/L (98-107) Carbon Dioxide Level 30 mmol/L (21-32) Anion Gap 6 (6-14) Blood Urea Nitrogen 11 mg/dL (7-20) Creatinine 0.9 mg/dL (0.6-1.0) Estimated GFR (Cockcroft-Gault) 64.8 Glucose Level 131 mg/dL (70-99) Calcium Level 8.1 mg/dL (8.5-10.1) Microbiology 01/29/17 Gram Stain - Final, Complete Medications Current Medications Morphine Sulfate 4 mg PRN Q2HR PRN IV PAIN Last administered on 01/29/17 14:59 ; Start 01/29/17 at 01:00; Stop 01/29/17 at 16:35; Status DC Ondansetron HCl (Zofran) 4 mg PRN Q6HRS PRN IV NAUSEA/VOMITING Last administered on 01/29/17 14:59; Start 01/29/17 at 01:00 Sodium Chloride 1,000 ml @ 100 mls/hr Q10H IV Last administered on 01/29/17 22 :43; Start 01/29/17 at 00:45 Iohexol (Omnipaque 350 Mg/ml) 400 ml 1X ONCE PO ; Start 01/29/17 at 08:00; Stop 01/29/17 at 08:03; Status DC Info (Do NOT chart on this entry -- for MONITORING) 1 each PRN DAILY PRN MC SEE COMMENTS; Start 01/29/17 at 08:15; Stop 01/29/17 at 16:37; Status DC Throat Lozenges (Chloraseptic) 1 spray PRN Q2HR PRN PO SORE THROAT; Start at 11:45 Iohexol (Omnipaque 350 Mg/ml) 100 ml 1X ONCE PO ; Start 01/29/17 at 14:00; Stop 01/29/17 at 14:01; Status DC Info (Do NOT chart on this entry -- for MONITORING) 1 each PRN DAILY PRN MC SEE COMMENTS; Start 01/29/17 at 14:00; Stop 01/31/17 at 13:59 Morphine Sulfate 4 mg PRN Q1HR PRN IV PAIN Last administered on 01/29/17 16:50 ; Start 01/29/17 at 16:45 Famotidine (Pepcid) 20 mg QHS IVP Last administered on 01/29/17 22:39; Start at 21:00 Succinylcholine Chloride (Anectine) 200 mg STK-MED ONCE .ROUTE ; Start 01/29/17 at 18:10; Stop 01/29/17 at 18:11; Status DC Rocuronium Harviell (Zemuron) 50 mg STK-MED ONCE .ROUTE ; Start 01/29/17 at 18:10 ; Stop 01/29/17 at 18:11; Status DC Fentanyl Citrate (Fentanyl 2ml Vial) 50 mcg PRN Q5MIN PRN IV Acute Pain; Start 01/29/17 at 07:00; Stop 01/30/17 at 01:00; Status DC Morphine Sulfate 4 mg PRN Q10MIN PRN IV Moderate Pain Last administered on 21:08; Start 01/29/17 at 18:15; Stop 01/30/17 at 01:00; Status DC Hydromorphone HCl (Dilaudid) 0.4 mg PRN Q10MIN PRN IV Moderate to severe pain; Start 01/29/17 at 18:15; Stop 01/30/17 at 01:00; Status DC Meperidine HCl (Demerol) 12.5 mg PRN Q5MIN PRN IV SHIVERING; Start 01/29/17 at 18:15; Stop 01/30/17 at 01:00; Status DC Prochlorperazine Edisylate (Compazine) 5 mg PRN Q6HRS PRN IV Nausea/Vomiting, 1st Choice Last administered on 01/29/17 21:27; Start 01/29/17 at 18:15; Stop 01/30/17 at 01:00; Status DC Diphenhydramine HCl (Benadryl) 12.5 mg PRN Q2HR PRN IV ITCHING; Start 01/29/17 at 18:15; Stop 01/30/17 at 01:00; Status DC Midazolam HCl (Versed) 2 mg PRN 1X PRN IV PRIOR TO PROCEDURE; Start 01/29/17 at 18:15; Stop 01/29/17 at 22:10; Status DC Midazolam HCl (Versed) 1 mg PRN 1X PRN IV PRIOR TO PROCEDURE; Start 01/29/17 at 18:15; Stop 01/29/17 at 22:10; Status DC Fentanyl Citrate (Fentanyl 2ml Vial) 25 mcg PRN Q5MIN PRN IV X 2 DOSES FOR PAIN ; Start 01/29/17 at 18:15; Stop 01/29/17 at 22:10; Status DC Fentanyl Citrate (Fentanyl 2ml Vial) 50 mcg PRN Q5MIN PRN IV X 2 DOSES FOR PAIN ; Start 01/29/17 at 18:15; Stop 01/29/17 at 22:10; Status DC Ringer's Solution 1,000 ml @ 125 mls/hr Q8H IV Last administered on 01/29/17t 20:48; Start 01/29/17 at 18:10; Stop 01/29/17 at 22:10; Status DC Lidocaine HCl 2 ml 1X PRN PRN ID IV START; Start 01/29/17 at 18:15; Stop at 22:10; Status DC Propofol 20 ml @ As Directed STK-MED ONCE IV ; Start 01/29/17 at 18:14; Stop 01/29 at 18:15; Status DC Lidocaine HCl (Lidocaine Pf 2% Vial) 5 ml STK-MED ONCE .ROUTE ; Start 01/29/17 at 18:14; Stop 01/29/17 at 18:15; Status DC Dexamethasone Sodium Phosphate (Decadron) 20 mg STK-MED ONCE .ROUTE ; Start 01/29 at 18:14; Stop 01/29/17 at 18:15; Status DC Ondansetron HCl (Zofran) 4 mg STK-MED ONCE .ROUTE ; Start 01/29/17 at 18:14; Stop 01/29/17 at 18:15; Status DC Fentanyl Citrate (Fentanyl 5ml Vial) 250 mcg STK-MED ONCE .ROUTE ; Start at 18:14; Stop 01/29/17 at 18:15; Status DC Cefazolin Sodium/ Dextrose 50 ml @ As Directed STK-MED ONCE IV ; Start 01/29/17 at 18:53; Stop 01/29/17 at 18:54; Status DC Piperacillin Sod/ Tazobactam Sod 3.375 gm/Sodium Chloride 50 ml @ 100 mls/hr 1X ONCE IV Last administered on 01/29/17 19:39; Start 01/29/17 at 19:15; Stop 01/29/17 at 19:44; Status DC Glycopyrrolate (Robinul) 1 mg STK-MED ONCE .ROUTE ; Start 01/29/17 at 20:05; Stop 01/29/17 at 20:06; Status DC Neostigmine Methylsulfate 5 mg STK-MED ONCE .ROUTE ; Start 01/29/17 at 20:05; Stop 01/29/17 at 20:06; Status DC Sevoflurane (Ultane) 90 ml STK-MED ONCE IH ; Start 01/29/17 at 20:50; Stop at 20:51; Status DC Hydromorphone HCl 30 ml @ 0 mls/hr CONT PRN PRN IV PROTOCOL Last administered on 01/29/17 21:26; Start 01/29/17 at 21:15 Enoxaparin Sodium (Lovenox 40mg Syringe) 40 mg QHS SQ ; Start 01/30/17 at 21:00 Active Scripts Active Flovent 100MCG Diskus (Fluticasone Propionate) 100 Mcg Disk.w.dev 1 Puff IH BID Proair Hfa Inhaler (Albuterol Sulfate) 8.5 Gm Hfa.aer.ad 1 Puff INH PRN Q6HRS PRN Reported Zyrtec (Cetirizine Hcl) 10 Mg Tablet 1 Tab PO DAILY Fish Oil 1,000 Mg Capsule ([place]-3 Fatty Acids/Fish Oil) 1 Each Capsule 1 Each PO Vitamin D-3 (Cholecalciferol (Vitamin D3)) 2,000 Unit Capsule 2,000 Unit PO Multivitamins (Multivitamin) 1 Each Tablet 1 Tab PO DAILY Vitals/I & O Vital Sign - Last 24 Hours 01/29/17 01/29/17 01/29/17 01/29/17 14:59 15:30 16:50 17:29 Pulse Ox 93 93 93 93 O2 Delivery Room Air Room Air Room Air Room Air 01/29/17 01/29/17 01/29/17 01/29/17 20:35 20:35 20:50 21:05 Temp 98.7 98.7 Pulse 61 60 60 Resp 20 20 20 B/P (MAP) 155/86 160/72 162/78 Pulse Ox 97 95 100 O2 Delivery Room Air Room Air Room Air Nasal Cannula O2 Flow Rate 2 01/29/17 01/29/17 01/29/17 01/29/17 21:08 21:20 21:25 21:26 Temp 100.3 100.3 Pulse 59 Resp 20 20 20 B/P (MAP) 162/78 Pulse Ox 99 100 99 O2 Delivery Room Air Nasal Cannula Nasal Cannula Nasal Cannula O2 Flow Rate 2 01/29/17 01/29/17 01/29/17 01/29/17 21:38 21:45 21:56 22:00 Temp 99.0 99.0 Pulse 61 59 Resp 20 16 20 B/P (MAP) 145/73 (97) 136/53 (80) Pulse Ox 99 95 99 94 O2 Delivery Nasal Cannula Nasal Cannula Nasal Cannula Nasal Cannula O2 Flow Rate 2.0 2.0 2.0 2.0 01/29/17 01/29/17 01/29/17 01/30/17 22:15 22:30 23:00 03:10 Temp 100.6 100.6 Pulse 62 60 63 76 Resp 16 B/P (MAP) 134/51 (78) 134/60 (84) 133/53 (79) 121/63 (82) Pulse Ox 94 95 94 96 O2 Delivery Nasal Cannula Nasal Cannula Nasal Cannula Nasal Cannula O2 Flow Rate 2.0 2.0 2.0 2.0 01/30/17 01/30/17 01/30/17 01/30/17 05:33 07:00 08:00 10:36 Temp 99.3 99.2 99.7 99.3 99.2 99.7 Pulse 70 72 Resp 18 14 B/P (MAP) 139/72 (94) 132/72 (92) Pulse Ox 97 O2 Delivery Nasal Cannula Nasal Cannula O2 Flow Rate 2.0 2.0 2.0 01/30/17 01/30/17 10:37 10:53 Temp 97.9 97.9 Pulse 64 Resp 14 B/P (MAP) 132/67 (88) Pulse Ox 96 O2 Delivery Nasal Cannula Nasal Cannula O2 Flow Rate 2.0 2.0 Intake and Output 01/29/17 01/29/17 01/30/17 15:00 23:00 07:00 Intake Total 2430 ml 545 ml Output Total 2325 ml 750 ml Balance 105 ml -205 ml JENNIFER YUAN MD Jan 30, 2017 12:38
[2017-01-30] MEDS ORDERED: ALBUTEROL SULFATE 2.5 MG/3 ML NEBU. NEB PRN (12:45)
[2017-01-30] MEDS: BUDESONIDE 0.5 MG/2 ML NEBU. NEB SCH (19:21)
[2017-01-30] MEDS: ENOXAPARIN 40 MG/0.4 ML SYRINGE. SQ SCH (20:07)
[2017-01-30] MEDS: FAMOTIDINE 20 MG/2 ML VIAL IVP SCH (20:07)
[2017-01-31 03:00] VITALS: BP 147/75
[2017-01-31 07:00] VITALS: BP 133/66
[2017-01-31] MEDS: BUDESONIDE 0.5 MG/2 ML NEBU. NEB SCH ×2 (08:00→19:03)
[2017-01-31 09:29] LABS: BASO % 1 % (0-3); EOS % 3 % (0-3); HEMATOCRIT 31.6 % (36.0-47.0); HEMOGLOBIN 10.8 g/dL (12.0-15.5); LYMPH # 1.2 x10^3/uL (1.0-4.8); LYMPH % 15 % (24-48); MEAN CORPUSCULAR HEMOGLOBIN 32 pg (25-35); MEAN CORPUSCULAR HGB CONC 34 g/dL (31-37); MEAN CORPUSCULAR VOLUME 93 fL (79-100); MONO % 11 % (0-9); NEUT % 71 % (31-73); PLATELET COUNT 206 x10^3/uL (140-400); RED CELL DISTRIBUTION WIDTH 12.6 % (11.5-14.5); WHITE BLOOD COUNT 8.2 x10^3/uL (4.0-11.0)
[2017-01-31 09:41] LABS: CALCIUM 7.9 mg/dL (8.5-10.1); CREATININE 0.8 mg/dL (0.6-1.0); GFR 74.2; POTASSIUM 3.9 mmol/L (3.5-5.1)
[2017-01-31 10:58] VITALS: BP 151/71
[2017-01-31] MEDS: IV NORMAL SALINE 1000ML BAG 1,000 ML IV SCH ×2 (12:45→15:01)
--- NOTE | 2017-01-31 12:46 | PDOC ---
REGINA DAN RUBBER TILE FLOOR LAYER 01/31/17 1246: SURGICAL PROGRESS NOTE Subjective NG significant output--has been taking full liquid diet with NG no flatus up in chair Vital Signs Vital Signs Date Time Temp Pulse Resp B/P (MAP) Pulse Ox O2 Delivery O2 Flow Rate FiO2 01/31/17 11:35 Room Air 01/31/17 10:58 97.0 71 18 151/71 (97) 96 97.0 01/30/17 20:00 2.0 I&O Intake and Output 01/31/17 07:00 Intake Total 1013 ml Output Total 950 ml Balance 63 ml Intake Oral 120 ml IV Total 893 ml Output Urine Total 950 ml PATIENT HAS A TURNER: Yes General: Alert, Oriented X3, Cooperative HEENT: Other (NG bilious/fluid output) Abdomen: Soft, Other (dressing dry ) Labs Laboratory Tests Test 01/30/17 04:37 01/31/17 09:05 White Blood Count 12.9 x10^3/uL (4.0-11.0) 8.2 x10^3/uL (4.0-11.0) Red Blood Count 3.58 x10^6/uL (3.50-5.40) 3.40 x10^6/uL (3.50-5.40) Hemoglobin 11.1 g/dL (12.0-15.5) 10.8 g/dL (12.0-15.5) Hematocrit 34.0 % (36.0-47.0) 31.6 % (36.0-47.0) Mean Corpuscular Volume 95 fL (79-100) 93 fL (79-100) Mean Corpuscular Hemoglobin 31 pg (25-35) 32 pg (25-35) Mean Corpuscular Hemoglobin Concent 33 g/dL (31-37) 34 g/dL (31-37) Red Cell Distribution Width 12.9 % (11.5-14.5) 12.6 % (11.5-14.5) Platelet Count 204 x10^3/uL (140-400) 206 x10^3/uL (140-400) Neutrophils (%) (Auto) 86 % (31-73) 71 % (31-73) Lymphocytes (%) (Auto) 6 % (24-48) 15 % (24-48) Monocytes (%) (Auto) 8 % (0-9) 11 % (0-9) Eosinophils (%) (Auto) 0 % (0-3) 3 % (0-3) Basophils (%) (Auto) 0 % (0-3) 1 % (0-3) Neutrophils # (Auto) 11.0 x10^3uL (1.8-7.7) 5.8 x10^3uL (1.8-7.7) Lymphocytes # (Auto) 0.7 x10^3/uL (1.0-4.8) 1.2 x10^3/uL (1.0-4.8) Monocytes # (Auto) 1.1 x10^3/uL (0.0-1.1) 0.9 x10^3/uL (0.0-1.1) Eosinophils # (Auto) 0.0 x10^3/uL (0.0-0.7) 0.2 x10^3/uL (0.0-0.7) Basophils # (Auto) 0.0 x10^3/uL (0.0-0.2) 0.0 x10^3/uL (0.0-0.2) Sodium Level 141 mmol/L (136-145) 139 mmol/L (136-145) Potassium Level 4.1 mmol/L (3.5-5.1) 3.9 mmol/L (3.5-5.1) Chloride Level 105 mmol/L (98-107) 104 mmol/L (98-107) Carbon Dioxide Level 30 mmol/L (21-32) 28 mmol/L (21-32) Anion Gap 6 (6-14) 7 (6-14) Blood Urea Nitrogen 11 mg/dL (7-20) 10 mg/dL (7-20) Creatinine 0.9 mg/dL (0.6-1.0) 0.8 mg/dL (0.6-1.0) Estimated GFR (Cockcroft-Gault) 64.8 74.2 Glucose Level 131 mg/dL (70-99) 95 mg/dL (70-99) Calcium Level 8.1 mg/dL (8.5-10.1) 7.9 mg/dL (8.5-10.1) Laboratory Tests Test 01/31/17 09:05 White Blood Count 8.2 x10^3/uL (4.0-11.0) Red Blood Count 3.40 x10^6/uL (3.50-5.40) Hemoglobin 10.8 g/dL (12.0-15.5) Hematocrit 31.6 % (36.0-47.0) Mean Corpuscular Volume 93 fL (79-100) Mean Corpuscular Hemoglobin 32 pg (25-35) Mean Corpuscular Hemoglobin Concent 34 g/dL (31-37) Red Cell Distribution Width 12.6 % (11.5-14.5) Platelet Count 206 x10^3/uL (140-400) Neutrophils (%) (Auto) 71 % (31-73) Lymphocytes (%) (Auto) 15 % (24-48) Monocytes (%) (Auto) 11 % (0-9) Eosinophils (%) (Auto) 3 % (0-3) Basophils (%) (Auto) 1 % (0-3) Neutrophils # (Auto) 5.8 x10^3uL (1.8-7.7) Lymphocytes # (Auto) 1.2 x10^3/uL (1.0-4.8) Monocytes # (Auto) 0.9 x10^3/uL (0.0-1.1) Eosinophils # (Auto) 0.2 x10^3/uL (0.0-0.7) Basophils # (Auto) 0.0 x10^3/uL (0.0-0.2) Sodium Level 139 mmol/L (136-145) Potassium Level 3.9 mmol/L (3.5-5.1) Chloride Level 104 mmol/L (98-107) Carbon Dioxide Level 28 mmol/L (21-32) Anion Gap 7 (6-14) Blood Urea Nitrogen 10 mg/dL (7-20) Creatinine 0.8 mg/dL (0.6-1.0) Estimated GFR (Cockcroft-Gault) 74.2 Glucose Level 95 mg/dL (70-99) Calcium Level 7.9 mg/dL (8.5-10.1) Assessment/Plan POD#2 xlap, reduction internal hernia, cecopexy NPO, bowel rest, hydration dc turner ambulate d/w pt, nurse, IPC--NPO status Problems: STACEY SANTANA MD 01/31/17 1738: SURGICAL PROGRESS NOTE Assessment/Plan Agree with above, expect ileus, hold on PO until return of bowel function Problems: REGINA DAN [employer]ER Jan 31, 2017 12:46 STACEY SANTANA MD Jan 31, 2017 17:38
--- NOTE | 2017-01-31 13:17 | PDOC ---
PROGRESS NOTES Chief Complaint Chief Complaint abd pain with SBO, s/p laparotomy, reduction of internal hernia, cecopexy 01/28 SIRS wo infection POst op pain on BRIQUETTE MOLDER History of Present Illness History of Present Illness disappointed as pt had liquid diet whole day January 30 , yesterday asking me of the complications of that erroneous order As per gS, should still be nPO as NGT coming out a lot NO inc in abd pain or emesis yesterday Looking at records, [facility] put a verbal order under Emma MARLOW for such diet order. VErified with Emma Marlow and Nicole, they did not give that verbal order over the weekend I did reach out with RN ranch hand supervisor Jazmine, she will investigate and let me know wants to get to the bottom of things PLAN; COnt BRIQUETTE MOLDER and nGT (lots still coming out)\ MAIntain turner - good UO NPO MUltiple visits and signif time in room, dw hsuband Vitals Vitals Vital Signs Date Time Temp Pulse Resp B/P (MAP) Pulse Ox O2 Delivery O2 Flow Rate FiO2 01/31/17 11:35 Room Air 01/31/17 10:58 97.0 71 18 151/71 (97) 96 97.0 01/30/17 20:00 2.0 Physical Exam General: Alert, Oriented X3, Cooperative Heart: Regular rate, Normal S1, Normal S2, No murmurs Lungs: Clear Abdomen: Soft, Other (dressing dry ) Extremities: No clubbing, No edema Skin: No rashes Labs LABS Laboratory Tests Test 01/31/17 09:05 White Blood Count 8.2 x10^3/uL (4.0-11.0) Red Blood Count 3.40 x10^6/uL (3.50-5.40) Hemoglobin 10.8 g/dL (12.0-15.5) Hematocrit 31.6 % (36.0-47.0) Mean Corpuscular Volume 93 fL (79-100) Mean Corpuscular Hemoglobin 32 pg (25-35) Mean Corpuscular Hemoglobin Concent 34 g/dL (31-37) Red Cell Distribution Width 12.6 % (11.5-14.5) Platelet Count 206 x10^3/uL (140-400) Neutrophils (%) (Auto) 71 % (31-73) Lymphocytes (%) (Auto) 15 % (24-48) Monocytes (%) (Auto) 11 % (0-9) Eosinophils (%) (Auto) 3 % (0-3) Basophils (%) (Auto) 1 % (0-3) Neutrophils # (Auto) 5.8 x10^3uL (1.8-7.7) Lymphocytes # (Auto) 1.2 x10^3/uL (1.0-4.8) Monocytes # (Auto) 0.9 x10^3/uL (0.0-1.1) Eosinophils # (Auto) 0.2 x10^3/uL (0.0-0.7) Basophils # (Auto) 0.0 x10^3/uL (0.0-0.2) Sodium Level 139 mmol/L (136-145) Potassium Level 3.9 mmol/L (3.5-5.1) Chloride Level 104 mmol/L (98-107) Carbon Dioxide Level 28 mmol/L (21-32) Anion Gap 7 (6-14) Blood Urea Nitrogen 10 mg/dL (7-20) Creatinine 0.8 mg/dL (0.6-1.0) Estimated GFR (Cockcroft-Gault) 74.2 Glucose Level 95 mg/dL (70-99) Calcium Level 7.9 mg/dL (8.5-10.1) Review of Systems Review of Systems denies all 14 pt - no inc in abd pain Comment Review of Relevant I have reviewed the following items александр (where applicable) has been applied. Labs Laboratory Tests Test 01/30/17 04:37 01/31/17 09:05 White Blood Count 12.9 x10^3/uL (4.0-11.0) 8.2 x10^3/uL (4.0-11.0) Red Blood Count 3.58 x10^6/uL (3.50-5.40) 3.40 x10^6/uL (3.50-5.40) Hemoglobin 11.1 g/dL (12.0-15.5) 10.8 g/dL (12.0-15.5) Hematocrit 34.0 % (36.0-47.0) 31.6 % (36.0-47.0) Mean Corpuscular Volume 95 fL (79-100) 93 fL (79-100) Mean Corpuscular Hemoglobin 31 pg (25-35) 32 pg (25-35) Mean Corpuscular Hemoglobin Concent 33 g/dL (31-37) 34 g/dL (31-37) Red Cell Distribution Width 12.9 % (11.5-14.5) 12.6 % (11.5-14.5) Platelet Count 204 x10^3/uL (140-400) 206 x10^3/uL (140-400) Neutrophils (%) (Auto) 86 % (31-73) 71 % (31-73) Lymphocytes (%) (Auto) 6 % (24-48) 15 % (24-48) Monocytes (%) (Auto) 8 % (0-9) 11 % (0-9) Eosinophils (%) (Auto) 0 % (0-3) 3 % (0-3) Basophils (%) (Auto) 0 % (0-3) 1 % (0-3) Neutrophils # (Auto) 11.0 x10^3uL (1.8-7.7) 5.8 x10^3uL (1.8-7.7) Lymphocytes # (Auto) 0.7 x10^3/uL (1.0-4.8) 1.2 x10^3/uL (1.0-4.8) Monocytes # (Auto) 1.1 x10^3/uL (0.0-1.1) 0.9 x10^3/uL (0.0-1.1) Eosinophils # (Auto) 0.0 x10^3/uL (0.0-0.7) 0.2 x10^3/uL (0.0-0.7) Basophils # (Auto) 0.0 x10^3/uL (0.0-0.2) 0.0 x10^3/uL (0.0-0.2) Sodium Level 141 mmol/L (136-145) 139 mmol/L (136-145) Potassium Level 4.1 mmol/L (3.5-5.1) 3.9 mmol/L (3.5-5.1) Chloride Level 105 mmol/L (98-107) 104 mmol/L (98-107) Carbon Dioxide Level 30 mmol/L (21-32) 28 mmol/L (21-32) Anion Gap 6 (6-14) 7 (6-14) Blood Urea Nitrogen 11 mg/dL (7-20) 10 mg/dL (7-20) Creatinine 0.9 mg/dL (0.6-1.0) 0.8 mg/dL (0.6-1.0) Estimated GFR (Cockcroft-Gault) 64.8 74.2 Glucose Level 131 mg/dL (70-99) 95 mg/dL (70-99) Calcium Level 8.1 mg/dL (8.5-10.1) 7.9 mg/dL (8.5-10.1) Laboratory Tests Test 01/31/17 09:05 White Blood Count 8.2 x10^3/uL (4.0-11.0) Red Blood Count 3.40 x10^6/uL (3.50-5.40) Hemoglobin 10.8 g/dL (12.0-15.5) Hematocrit 31.6 % (36.0-47.0) Mean Corpuscular Volume 93 fL (79-100) Mean Corpuscular Hemoglobin 32 pg (25-35) Mean Corpuscular Hemoglobin Concent 34 g/dL (31-37) Red Cell Distribution Width 12.6 % (11.5-14.5) Platelet Count 206 x10^3/uL (140-400) Neutrophils (%) (Auto) 71 % (31-73) Lymphocytes (%) (Auto) 15 % (24-48) Monocytes (%) (Auto) 11 % (0-9) Eosinophils (%) (Auto) 3 % (0-3) Basophils (%) (Auto) 1 % (0-3) Neutrophils # (Auto) 5.8 x10^3uL (1.8-7.7) Lymphocytes # (Auto) 1.2 x10^3/uL (1.0-4.8) Monocytes # (Auto) 0.9 x10^3/uL (0.0-1.1) Eosinophils # (Auto) 0.2 x10^3/uL (0.0-0.7) Basophils # (Auto) 0.0 x10^3/uL (0.0-0.2) Sodium Level 139 mmol/L (136-145) Potassium Level 3.9 mmol/L (3.5-5.1) Chloride Level 104 mmol/L (98-107) Carbon Dioxide Level 28 mmol/L (21-32) Anion Gap 7 (6-14) Blood Urea Nitrogen 10 mg/dL (7-20) Creatinine 0.8 mg/dL (0.6-1.0) Estimated GFR (Cockcroft-Gault) 74.2 Glucose Level 95 mg/dL (70-99) Calcium Level 7.9 mg/dL (8.5-10.1) Microbiology 01/29/17 Gram Stain - Final, Complete Medications Current Medications Morphine Sulfate 4 mg PRN Q2HR PRN IV PAIN Last administered on 01/29/17 14:59 ; Start 01/29/17 at 01:00; Stop 01/29/17 at 16:35; Status DC Ondansetron HCl (Zofran) 4 mg PRN Q6HRS PRN IV NAUSEA/VOMITING Last administered on 01/29/17 14:59; Start 01/29/17 at 01:00 Sodium Chloride 1,000 ml @ 100 mls/hr Q10H IV Last administered on 01/30/17 19 :57; Start 01/29/17 at 00:45 Iohexol (Omnipaque 350 Mg/ml) 400 ml 1X ONCE PO ; Start 01/29/17 at 08:00; Stop 01/29/17 at 08:03; Status DC Info (Do NOT chart on this entry -- for MONITORING) 1 each PRN DAILY PRN MC SEE COMMENTS; Start 01/29/17 at 08:15; Stop 01/29/17 at 16:37; Status DC Throat Lozenges (Chloraseptic) 1 spray PRN Q2HR PRN PO SORE THROAT; Start at 11:45 Iohexol (Omnipaque 350 Mg/ml) 100 ml 1X ONCE PO ; Start 01/29/17 at 14:00; Stop 01/29/17 at 14:01; Status DC Info (Do NOT chart on this entry -- for MONITORING) 1 each PRN DAILY PRN MC SEE COMMENTS; Start 01/29/17 at 14:00; Stop 01/31/17 at 13:59 Morphine Sulfate 4 mg PRN Q1HR PRN IV PAIN Last administered on 01/29/17 16:50 ; Start 01/29/17 at 16:45 Famotidine (Pepcid) 20 mg QHS IVP Last administered on 01/30/17 20:07; Start at 21:00 Succinylcholine Chloride (Anectine) 200 mg STK-MED ONCE .ROUTE ; Start 01/29/17 at 18:10; Stop 01/29/17 at 18:11; Status DC Rocuronium [place] (Zemuron) 50 mg STK-MED ONCE .ROUTE ; Start 01/29/17 at 18:10 ; Stop 01/29/17 at 18:11; Status DC Fentanyl Citrate (Fentanyl 2ml Vial) 50 mcg PRN Q5MIN PRN IV Acute Pain; Start 01/29/17 at 07:00; Stop 01/30/17 at 01:00; Status DC Morphine Sulfate 4 mg PRN Q10MIN PRN IV Moderate Pain Last administered on 21:08; Start 01/29/17 at 18:15; Stop 01/30/17 at 01:00; Status DC Hydromorphone HCl (Dilaudid) 0.4 mg PRN Q10MIN PRN IV Moderate to severe pain; Start 01/29/17 at 18:15; Stop 01/30/17 at 01:00; Status DC Meperidine HCl (Demerol) 12.5 mg PRN Q5MIN PRN IV SHIVERING; Start 01/29/17 at 18:15; Stop 01/30/17 at 01:00; Status DC Prochlorperazine Edisylate (Compazine) 5 mg PRN Q6HRS PRN IV Nausea/Vomiting, 1st Choice Last administered on 01/29/17 21:27; Start 01/29/17 at 18:15; Stop 01/30/17 at 01:00; Status DC Diphenhydramine HCl (Benadryl) 12.5 mg PRN Q2HR PRN IV ITCHING; Start 01/29/17 at 18:15; Stop 01/30/17 at 01:00; Status DC Midazolam HCl (Versed) 2 mg PRN 1X PRN IV PRIOR TO PROCEDURE; Start 01/29/17 at 18:15; Stop 01/29/17 at 22:10; Status DC Midazolam HCl (Versed) 1 mg PRN 1X PRN IV PRIOR TO PROCEDURE; Start 01/29/17 at 18:15; Stop 01/29/17 at 22:10; Status DC Fentanyl Citrate (Fentanyl 2ml Vial) 25 mcg PRN Q5MIN PRN IV X 2 DOSES FOR PAIN ; Start 01/29/17 at 18:15; Stop 01/29/17 at 22:10; Status DC Fentanyl Citrate (Fentanyl 2ml Vial) 50 mcg PRN Q5MIN PRN IV X 2 DOSES FOR PAIN ; Start 01/29/17 at 18:15; Stop 01/29/17 at 22:10; Status DC Ringer's Solution 1,000 ml @ 125 mls/hr Q8H IV Last administered on 01/29/17t 20:48; Start 01/29/17 at 18:10; Stop 01/29/17 at 22:10; Status DC Lidocaine HCl 2 ml 1X PRN PRN ID IV START; Start 01/29/17 at 18:15; Stop at 22:10; Status DC Propofol 20 ml @ As Directed STK-MED ONCE IV ; Start 01/29/17 at 18:14; Stop 01/29 at 18:15; Status DC Lidocaine HCl (Lidocaine Pf 2% Vial) 5 ml STK-MED ONCE .ROUTE ; Start 01/29/17 at 18:14; Stop 01/29/17 at 18:15; Status DC Dexamethasone Sodium Phosphate (Decadron) 20 mg STK-MED ONCE .ROUTE ; Start 01/29 at 18:14; Stop 01/29/17 at 18:15; Status DC Ondansetron HCl (Zofran) 4 mg STK-MED ONCE .ROUTE ; Start 01/29/17 at 18:14; Stop 01/29/17 at 18:15; Status DC Fentanyl Citrate (Fentanyl 5ml Vial) 250 mcg STK-MED ONCE .ROUTE ; Start at 18:14; Stop 01/29/17 at 18:15; Status DC Cefazolin Sodium/ Dextrose 50 ml @ As Directed STK-MED ONCE IV ; Start 01/29/17 at 18:53; Stop 01/29/17 at 18:54; Status DC Piperacillin Sod/ Tazobactam Sod 3.375 gm/Sodium Chloride 50 ml @ 100 mls/hr 1X ONCE IV Last administered on 01/29/17 19:39; Start 01/29/17 at 19:15; Stop 01/29/17 at 19:44; Status DC Glycopyrrolate (Robinul) 1 mg STK-MED ONCE .ROUTE ; Start 01/29/17 at 20:05; Stop 01/29/17 at 20:06; Status DC Neostigmine Methylsulfate 5 mg STK-MED ONCE .ROUTE ; Start 01/29/17 at 20:05; Stop 01/29/17 at 20:06; Status DC Sevoflurane (Ultane) 90 ml STK-MED ONCE IH ; Start 01/29/17 at 20:50; Stop at 20:51; Status DC Hydromorphone HCl 30 ml @ 0 mls/hr CONT PRN PRN IV PROTOCOL Last administered on 01/29/17 21:26; Start 01/29/17 at 21:15 Enoxaparin Sodium (Lovenox 40mg Syringe) 40 mg QHS SQ Last administered on 20:07; Start 01/30/17 at 21:00 Albuterol Sulfate (Ventolin Neb Soln) 2.5 mg PRN Q6HRS PRN NEB SOA; Start at 12:45 Budesonide (Pulmicort) 0.5 mg RTBID NEB ; Start 01/30/17 at 20:00 Active Scripts Active Proair Hfa Inhaler (Albuterol Sulfate) 8.5 Gm Hfa.aer.ad 1 Puff INH PRN Q6HRS PRN Flovent 100MCG Diskus (Fluticasone Propionate) 100 Mcg Disk.w.dev 1 Puff IH BID Reported Zyrtec (Cetirizine Hcl) 10 Mg Tablet 1 Tab PO DAILY Fish Oil 1,000 Mg Capsule ([place]-3 Fatty Acids/Fish Oil) 1 Each Capsule 1 Each PO Vitamin D-3 (Cholecalciferol (Vitamin D3)) 2,000 Unit Capsule 2,000 Unit PO Multivitamins (Multivitamin) 1 Each Tablet 1 Tab PO DAILY Vitals/I & O Vital Sign - Last 24 Hours 01/30/17 01/30/17 01/30/17 01/30/17 14:33 15:33 19:00 20:00 Temp 98.4 98.6 98.4 98.6 Pulse 64 66 Resp 14 18 B/P (MAP) 143/70 (94) 131/65 (87) Pulse Ox 97 98 97 O2 Delivery Nasal Cannula Nasal Cannula Room Air Nasal Cannula O2 Flow Rate 2.0 2.0 2.0 01/30/17 01/31/17 01/31/17 01/31/17 23:00 03:00 07:00 07:20 Temp 99.3 99.0 97.9 99.3 99.0 97.9 Pulse 68 67 63 Resp 18 18 18 B/P (MAP) 139/74 (95) 147/75 (99) 133/66 (88) Pulse Ox 95 95 97 O2 Delivery Room Air Room Air Room Air Room Air 01/31/17 01/31/17 10:58 11:35 Temp 97.0 97.0 Pulse 71 Resp 18 B/P (MAP) 151/71 (97) Pulse Ox 96 O2 Delivery Room Air Room Air Intake and Output 01/30/17 01/30/17 01/31/17 14:59 22:59 06:59 Intake Total 120 ml 893 ml Output Total 400 ml 550 ml Balance -280 ml 343 ml TIFFANY KEARNS MD Jan 31, 2017 13:17
[2017-01-31 14:36] VITALS: BP 144/69
[2017-01-31 19:05] VITALS: BP 139/64
[2017-01-31] MEDS: FAMOTIDINE 20 MG/2 ML VIAL IVP SCH (21:55)
[2017-01-31] MEDS: ENOXAPARIN 40 MG/0.4 ML SYRINGE. SQ SCH (21:56)
[2017-01-31 23:11] VITALS: BP 156/69
[2017-02-01] MEDS: IV NORMAL SALINE 1000ML BAG 1,000 ML IV SCH ×2 (00:24→17:42)
[2017-02-01 03:05] VITALS: BP 144/68
[2017-02-01 05:56] LABS: BASO % 1 % (0-3); EOS % 3 % (0-3); HEMOGLOBIN 11.8 g/dL (12.0-15.5); LYMPH # 1.6 x10^3/uL (1.0-4.8); LYMPH % 19 % (24-48); MEAN CORPUSCULAR HEMOGLOBIN 31 pg (25-35); MEAN CORPUSCULAR HGB CONC 33 g/dL (31-37); MEAN CORPUSCULAR VOLUME 95 fL (79-100); MONO % 8 % (0-9); NEUT % 70 % (31-73); PLATELET COUNT 263 x10^3/uL (140-400); RED BLOOD COUNT 3.81 x10^6/uL (3.50-5.40); RED CELL DISTRIBUTION WIDTH 12.4 % (11.5-14.5); WHITE BLOOD COUNT 8.3 x10^3/uL (4.0-11.0)
[2017-02-01 06:10] LABS: CALCIUM 8.7 mg/dL (8.5-10.1); CREATININE 0.8 mg/dL (0.6-1.0); GFR 74.2; POTASSIUM 3.3 mmol/L (3.5-5.1)
[2017-02-01 07:00] VITALS: BP 123/56
[2017-02-01] MEDS: BUDESONIDE 0.5 MG/2 ML NEBU. NEB SCH ×2 (08:15→18:15)
--- NOTE | 2017-02-01 08:43 | PDOC ---
SURGICAL PROGRESS NOTE Subjective overall feeling better NG bothering the back of her throat no flatus yet urinating Vital Signs Vital Signs Date Time Temp Pulse Resp B/P (MAP) Pulse Ox O2 Delivery O2 Flow Rate FiO2 02/01/17 08:16 97 Room Air 02/01/17 07:00 98.8 70 16 123/56 (78) 98.8 I&O Intake and Output 02/01/17 07:00 Intake Total 2477.25 ml Output Total 2575 ml Balance -97.75 ml Intake Oral 60 ml IV Total 2417.25 ml Output Urine Total 1400 ml Gastric Drainage Total 1175 ml # Voids 4 PATIENT HAS A RICHARDS: No General: Alert, Oriented X3, Cooperative, No acute distress HEENT: Other (NG bilious, minimal out since PO fluids stopped ) Abdomen: Soft, Other (ND, incision c/d/i, no erythema ) Labs Laboratory Tests Test 01/31/17 09:05 02/01/17 05:20 White Blood Count 8.2 x10^3/uL (4.0-11.0) 8.3 x10^3/uL (4.0-11.0) Red Blood Count 3.40 x10^6/uL (3.50-5.40) 3.81 x10^6/uL (3.50-5.40) Hemoglobin 10.8 g/dL (12.0-15.5) 11.8 g/dL (12.0-15.5) Hematocrit 31.6 % (36.0-47.0) 36.0 % (36.0-47.0) Mean Corpuscular Volume 93 fL (79-100) 95 fL (79-100) Mean Corpuscular Hemoglobin 32 pg (25-35) 31 pg (25-35) Mean Corpuscular Hemoglobin Concent 34 g/dL (31-37) 33 g/dL (31-37) Red Cell Distribution Width 12.6 % (11.5-14.5) 12.4 % (11.5-14.5) Platelet Count 206 x10^3/uL (140-400) 263 x10^3/uL (140-400) Neutrophils (%) (Auto) 71 % (31-73) 70 % (31-73) Lymphocytes (%) (Auto) 15 % (24-48) 19 % (24-48) Monocytes (%) (Auto) 11 % (0-9) 8 % (0-9) Eosinophils (%) (Auto) 3 % (0-3) 3 % (0-3) Basophils (%) (Auto) 1 % (0-3) 1 % (0-3) Neutrophils # (Auto) 5.8 x10^3uL (1.8-7.7) 5.8 x10^3uL (1.8-7.7) Lymphocytes # (Auto) 1.2 x10^3/uL (1.0-4.8) 1.6 x10^3/uL (1.0-4.8) Monocytes # (Auto) 0.9 x10^3/uL (0.0-1.1) 0.7 x10^3/uL (0.0-1.1) Eosinophils # (Auto) 0.2 x10^3/uL (0.0-0.7) 0.2 x10^3/uL (0.0-0.7) Basophils # (Auto) 0.0 x10^3/uL (0.0-0.2) 0.0 x10^3/uL (0.0-0.2) Sodium Level 139 mmol/L (136-145) 137 mmol/L (136-145) Potassium Level 3.9 mmol/L (3.5-5.1) 3.3 mmol/L (3.5-5.1) Chloride Level 104 mmol/L (98-107) 100 mmol/L (98-107) Carbon Dioxide Level 28 mmol/L (21-32) 26 mmol/L (21-32) Anion Gap 7 (6-14) 11 (6-14) Blood Urea Nitrogen 10 mg/dL (7-20) 10 mg/dL (7-20) Creatinine 0.8 mg/dL (0.6-1.0) 0.8 mg/dL (0.6-1.0) Estimated GFR (Cockcroft-Gault) 74.2 74.2 Glucose Level 95 mg/dL (70-99) 75 mg/dL (70-99) Calcium Level 7.9 mg/dL (8.5-10.1) 8.7 mg/dL (8.5-10.1) Laboratory Tests Test 01/31/17 09:05 02/01/17 05:20 White Blood Count 8.2 x10^3/uL (4.0-11.0) 8.3 x10^3/uL (4.0-11.0) Red Blood Count 3.40 x10^6/uL (3.50-5.40) 3.81 x10^6/uL (3.50-5.40) Hemoglobin 10.8 g/dL (12.0-15.5) 11.8 g/dL (12.0-15.5) Hematocrit 31.6 % (36.0-47.0) 36.0 % (36.0-47.0) Mean Corpuscular Volume 93 fL (79-100) 95 fL (79-100) Mean Corpuscular Hemoglobin 32 pg (25-35) 31 pg (25-35) Mean Corpuscular Hemoglobin Concent 34 g/dL (31-37) 33 g/dL (31-37) Red Cell Distribution Width 12.6 % (11.5-14.5) 12.4 % (11.5-14.5) Platelet Count 206 x10^3/uL (140-400) 263 x10^3/uL (140-400) Neutrophils (%) (Auto) 71 % (31-73) 70 % (31-73) Lymphocytes (%) (Auto) 15 % (24-48) 19 % (24-48) Monocytes (%) (Auto) 11 % (0-9) 8 % (0-9) Eosinophils (%) (Auto) 3 % (0-3) 3 % (0-3) Basophils (%) (Auto) 1 % (0-3) 1 % (0-3) Neutrophils # (Auto) 5.8 x10^3uL (1.8-7.7) 5.8 x10^3uL (1.8-7.7) Lymphocytes # (Auto) 1.2 x10^3/uL (1.0-4.8) 1.6 x10^3/uL (1.0-4.8) Monocytes # (Auto) 0.9 x10^3/uL (0.0-1.1) 0.7 x10^3/uL (0.0-1.1) Eosinophils # (Auto) 0.2 x10^3/uL (0.0-0.7) 0.2 x10^3/uL (0.0-0.7) Basophils # (Auto) 0.0 x10^3/uL (0.0-0.2) 0.0 x10^3/uL (0.0-0.2) Sodium Level 139 mmol/L (136-145) 137 mmol/L (136-145) Potassium Level 3.9 mmol/L (3.5-5.1) 3.3 mmol/L (3.5-5.1) Chloride Level 104 mmol/L (98-107) 100 mmol/L (98-107) Carbon Dioxide Level 28 mmol/L (21-32) 26 mmol/L (21-32) Anion Gap 7 (6-14) 11 (6-14) Blood Urea Nitrogen 10 mg/dL (7-20) 10 mg/dL (7-20) Creatinine 0.8 mg/dL (0.6-1.0) 0.8 mg/dL (0.6-1.0) Estimated GFR (Cockcroft-Gault) 74.2 74.2 Glucose Level 95 mg/dL (70-99) 75 mg/dL (70-99) Calcium Level 7.9 mg/dL (8.5-10.1) 8.7 mg/dL (8.5-10.1) Problem List POD#3 xlap, reduction internal hernia, cecopexy trial clamp NG today Problems: REGINA DAN APRN Feb 01, 2017 08:43
[2017-02-01] MEDS ORDERED: POTASSIUM CHLORIDE 20MEQ 50 ML IV ONE (09:30)
[2017-02-01] MEDS: POTASSIUM CHLORIDE 10MEQ 100 ML IV SCH ×2 (09:43→11:07)
--- NOTE | 2017-02-01 10:26 | PDOC ---
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 VErified with Emma Marlow and Nicole, they did not give that verbal order over the weekend I did reach out with RN parking supervisor Jazmine, she will investigate and let me know wants to get to the bottom of things PLAN; Replace Kcl IV 20 x 1 LAbs alisa TAper then dc career development specialist today Dilaudid IV prn pushes NPO still, if no nausea abd pain with NGT clamped, likely dc NGT alisa Dw son and pt and RN at bedside Vitals Vitals Vital Signs Date Time Temp Pulse Resp B/P (MAP) Pulse Ox O2 Delivery O2 Flow Rate FiO2 02/01/17 08:16 97 Room Air 02/01/17 07:00 98.8 70 16 123/56 (78) 98.8 Physical Exam General: Alert, Oriented X3, Cooperative, No acute distress Heart: Regular rate, Normal S1, Normal S2, No murmurs Lungs: Clear Abdomen: Soft, Other (ND, incision c/d/i, no erythema ) Extremities: No clubbing, No edema Skin: No rashes Labs LABS Laboratory Tests Test 02/01/17 05:20 White Blood Count 8.3 x10^3/uL (4.0-11.0) Red Blood Count 3.81 x10^6/uL (3.50-5.40) Hemoglobin 11.8 g/dL (12.0-15.5) Hematocrit 36.0 % (36.0-47.0) Mean Corpuscular Volume 95 fL (79-100) Mean Corpuscular Hemoglobin 31 pg (25-35) Mean Corpuscular Hemoglobin Concent 33 g/dL (31-37) Red Cell Distribution Width 12.4 % (11.5-14.5) Platelet Count 263 x10^3/uL (140-400) Neutrophils (%) (Auto) 70 % (31-73) Lymphocytes (%) (Auto) 19 % (24-48) Monocytes (%) (Auto) 8 % (0-9) Eosinophils (%) (Auto) 3 % (0-3) Basophils (%) (Auto) 1 % (0-3) Neutrophils # (Auto) 5.8 x10^3uL (1.8-7.7) Lymphocytes # (Auto) 1.6 x10^3/uL (1.0-4.8) Monocytes # (Auto) 0.7 x10^3/uL (0.0-1.1) Eosinophils # (Auto) 0.2 x10^3/uL (0.0-0.7) Basophils # (Auto) 0.0 x10^3/uL (0.0-0.2) Sodium Level 137 mmol/L (136-145) Potassium Level 3.3 mmol/L (3.5-5.1) Chloride Level 100 mmol/L (98-107) Carbon Dioxide Level 26 mmol/L (21-32) Anion Gap 11 (6-14) Blood Urea Nitrogen 10 mg/dL (7-20) Creatinine 0.8 mg/dL (0.6-1.0) Estimated GFR (Cockcroft-Gault) 74.2 Glucose Level 75 mg/dL (70-99) Calcium Level 8.7 mg/dL (8.5-10.1) Review of Systems Review of Systems no inc abd pain, SOA, CP, nausea, emesis Comment Review of Relevant I have reviewed the following items александр (where applicable) has been applied. Labs Laboratory Tests Test 01/31/17 09:05 02/01/17 05:20 White Blood Count 8.2 x10^3/uL (4.0-11.0) 8.3 x10^3/uL (4.0-11.0) Red Blood Count 3.40 x10^6/uL (3.50-5.40) 3.81 x10^6/uL (3.50-5.40) Hemoglobin 10.8 g/dL (12.0-15.5) 11.8 g/dL (12.0-15.5) Hematocrit 31.6 % (36.0-47.0) 36.0 % (36.0-47.0) Mean Corpuscular Volume 93 fL (79-100) 95 fL (79-100) Mean Corpuscular Hemoglobin 32 pg (25-35) 31 pg (25-35) Mean Corpuscular Hemoglobin Concent 34 g/dL (31-37) 33 g/dL (31-37) Red Cell Distribution Width 12.6 % (11.5-14.5) 12.4 % (11.5-14.5) Platelet Count 206 x10^3/uL (140-400) 263 x10^3/uL (140-400) Neutrophils (%) (Auto) 71 % (31-73) 70 % (31-73) Lymphocytes (%) (Auto) 15 % (24-48) 19 % (24-48) Monocytes (%) (Auto) 11 % (0-9) 8 % (0-9) Eosinophils (%) (Auto) 3 % (0-3) 3 % (0-3) Basophils (%) (Auto) 1 % (0-3) 1 % (0-3) Neutrophils # (Auto) 5.8 x10^3uL (1.8-7.7) 5.8 x10^3uL (1.8-7.7) Lymphocytes # (Auto) 1.2 x10^3/uL (1.0-4.8) 1.6 x10^3/uL (1.0-4.8) Monocytes # (Auto) 0.9 x10^3/uL (0.0-1.1) 0.7 x10^3/uL (0.0-1.1) Eosinophils # (Auto) 0.2 x10^3/uL (0.0-0.7) 0.2 x10^3/uL (0.0-0.7) Basophils # (Auto) 0.0 x10^3/uL (0.0-0.2) 0.0 x10^3/uL (0.0-0.2) Sodium Level 139 mmol/L (136-145) 137 mmol/L (136-145) Potassium Level 3.9 mmol/L (3.5-5.1) 3.3 mmol/L (3.5-5.1) Chloride Level 104 mmol/L (98-107) 100 mmol/L (98-107) Carbon Dioxide Level 28 mmol/L (21-32) 26 mmol/L (21-32) Anion Gap 7 (6-14) 11 (6-14) Blood Urea Nitrogen 10 mg/dL (7-20) 10 mg/dL (7-20) Creatinine 0.8 mg/dL (0.6-1.0) 0.8 mg/dL (0.6-1.0) Estimated GFR (Cockcroft-Gault) 74.2 74.2 Glucose Level 95 mg/dL (70-99) 75 mg/dL (70-99) Calcium Level 7.9 mg/dL (8.5-10.1) 8.7 mg/dL (8.5-10.1) Laboratory Tests Test 02/01/17 05:20 White Blood Count 8.3 x10^3/uL (4.0-11.0) Red Blood Count 3.81 x10^6/uL (3.50-5.40) Hemoglobin 11.8 g/dL (12.0-15.5) Hematocrit 36.0 % (36.0-47.0) Mean Corpuscular Volume 95 fL (79-100) Mean Corpuscular Hemoglobin 31 pg (25-35) Mean Corpuscular Hemoglobin Concent 33 g/dL (31-37) Red Cell Distribution Width 12.4 % (11.5-14.5) Platelet Count 263 x10^3/uL (140-400) Neutrophils (%) (Auto) 70 % (31-73) Lymphocytes (%) (Auto) 19 % (24-48) Monocytes (%) (Auto) 8 % (0-9) Eosinophils (%) (Auto) 3 % (0-3) Basophils (%) (Auto) 1 % (0-3) Neutrophils # (Auto) 5.8 x10^3uL (1.8-7.7) Lymphocytes # (Auto) 1.6 x10^3/uL (1.0-4.8) Monocytes # (Auto) 0.7 x10^3/uL (0.0-1.1) Eosinophils # (Auto) 0.2 x10^3/uL (0.0-0.7) Basophils # (Auto) 0.0 x10^3/uL (0.0-0.2) Sodium Level 137 mmol/L (136-145) Potassium Level 3.3 mmol/L (3.5-5.1) Chloride Level 100 mmol/L (98-107) Carbon Dioxide Level 26 mmol/L (21-32) Anion Gap 11 (6-14) Blood Urea Nitrogen 10 mg/dL (7-20) Creatinine 0.8 mg/dL (0.6-1.0) Estimated GFR (Cockcroft-Gault) 74.2 Glucose Level 75 mg/dL (70-99) Calcium Level 8.7 mg/dL (8.5-10.1) Microbiology 01/29/17 Gram Stain - Final, Complete Medications Current Medications Morphine Sulfate 4 mg PRN Q2HR PRN IV PAIN Last administered on 01/29/17 14:59 ; Start 01/29/17 at 01:00; Stop 01/29/17 at 16:35; Status DC Ondansetron HCl (Zofran) 4 mg PRN Q6HRS PRN IV NAUSEA/VOMITING Last administered on 01/29/17 14:59; Start 01/29/17 at 01:00 Sodium Chloride 1,000 ml @ 100 mls/hr Q10H IV Last administered on 02/01/17 00 :24; Start 01/29/17 at 00:45 Iohexol (Omnipaque 350 Mg/ml) 400 ml 1X ONCE PO ; Start 01/29/17 at 08:00; Stop 01/29/17 at 08:03; Status DC Info (Do NOT chart on this entry -- for MONITORING) 1 each PRN DAILY PRN MC SEE COMMENTS; Start 01/29/17 at 08:15; Stop 01/29/17 at 16:37; Status DC Throat Lozenges (Chloraseptic) 1 spray PRN Q2HR PRN PO SORE THROAT; Start at 11:45 Iohexol (Omnipaque 350 Mg/ml) 100 ml 1X ONCE PO ; Start 01/29/17 at 14:00; Stop 01/29/17 at 14:01; Status DC Info (Do NOT chart on this entry -- for MONITORING) 1 each PRN DAILY PRN MC SEE COMMENTS; Start 01/29/17 at 14:00; Stop 01/31/17 at 13:59; Status DC Morphine Sulfate 4 mg PRN Q1HR PRN IV PAIN Last administered on 01/29/17 16:50 ; Start 01/29/17 at 16:45 Famotidine (Pepcid) 20 mg QHS IVP Last administered on 01/31/17 21:55; Start at 21:00 Succinylcholine Chloride (Anectine) 200 mg STK-MED ONCE .ROUTE ; Start 01/29/17 at 18:10; Stop 01/29/17 at 18:11; Status DC Rocuronium [place] (Zemuron) 50 mg STK-MED ONCE .ROUTE ; Start 01/29/17 at 18:10 ; Stop 01/29/17 at 18:11; Status DC Fentanyl Citrate (Fentanyl 2ml Vial) 50 mcg PRN Q5MIN PRN IV Acute Pain; Start 01/29/17 at 07:00; Stop 01/30/17 at 01:00; Status DC Morphine Sulfate 4 mg PRN Q10MIN PRN IV Moderate Pain Last administered on 21:08; Start 01/29/17 at 18:15; Stop 01/30/17 at 01:00; Status DC Hydromorphone HCl (Dilaudid) 0.4 mg PRN Q10MIN PRN IV Moderate to severe pain; Start 01/29/17 at 18:15; Stop 01/30/17 at 01:00; Status DC Meperidine HCl (Demerol) 12.5 mg PRN Q5MIN PRN IV SHIVERING; Start 01/29/17 at 18:15; Stop 01/30/17 at 01:00; Status DC Prochlorperazine Edisylate (Compazine) 5 mg PRN Q6HRS PRN IV Nausea/Vomiting, 1st Choice Last administered on 01/29/17 21:27; Start 01/29/17 at 18:15; Stop 01/30/17 at 01:00; Status DC Diphenhydramine HCl (Benadryl) 12.5 mg PRN Q2HR PRN IV ITCHING; Start 01/29/17 at 18:15; Stop 01/30/17 at 01:00; Status DC Midazolam HCl (Versed) 2 mg PRN 1X PRN IV PRIOR TO PROCEDURE; Start 01/29/17 at 18:15; Stop 01/29/17 at 22:10; Status DC Midazolam HCl (Versed) 1 mg PRN 1X PRN IV PRIOR TO PROCEDURE; Start 01/29/17 at 18:15; Stop 01/29/17 at 22:10; Status DC Fentanyl Citrate (Fentanyl 2ml Vial) 25 mcg PRN Q5MIN PRN IV X 2 DOSES FOR PAIN ; Start 01/29/17 at 18:15; Stop 01/29/17 at 22:10; Status DC Fentanyl Citrate (Fentanyl 2ml Vial) 50 mcg PRN Q5MIN PRN IV X 2 DOSES FOR PAIN ; Start 01/29/17 at 18:15; Stop 01/29/17 at 22:10; Status DC Ringer's Solution 1,000 ml @ 125 mls/hr Q8H IV Last administered on 01/29/17t 20:48; Start 01/29/17 at 18:10; Stop 01/29/17 at 22:10; Status DC Lidocaine HCl 2 ml 1X PRN PRN ID IV START; Start 01/29/17 at 18:15; Stop at 22:10; Status DC Propofol 20 ml @ As Directed STK-MED ONCE IV ; Start 01/29/17 at 18:14; Stop 01/29 at 18:15; Status DC Lidocaine HCl (Lidocaine Pf 2% Vial) 5 ml STK-MED ONCE .ROUTE ; Start 01/29/17 at 18:14; Stop 01/29/17 at 18:15; Status DC Dexamethasone Sodium Phosphate (Decadron) 20 mg STK-MED ONCE .ROUTE ; Start 01/29 at 18:14; Stop 01/29/17 at 18:15; Status DC Ondansetron HCl (Zofran) 4 mg STK-MED ONCE .ROUTE ; Start 01/29/17 at 18:14; Stop 01/29/17 at 18:15; Status DC Fentanyl Citrate (Fentanyl 5ml Vial) 250 mcg STK-MED ONCE .ROUTE ; Start at 18:14; Stop 01/29/17 at 18:15; Status DC Cefazolin Sodium/ Dextrose 50 ml @ As Directed STK-MED ONCE IV ; Start 01/29/17 at 18:53; Stop 01/29/17 at 18:54; Status DC Piperacillin Sod/ Tazobactam Sod 3.375 gm/Sodium Chloride 50 ml @ 100 mls/hr 1X ONCE IV Last administered on 01/29/17 19:39; Start 01/29/17 at 19:15; Stop 01/29/17 at 19:44; Status DC Glycopyrrolate (Robinul) 1 mg STK-MED ONCE .ROUTE ; Start 01/29/17 at 20:05; Stop 01/29/17 at 20:06; Status DC Neostigmine Methylsulfate 5 mg STK-MED ONCE .ROUTE ; Start 01/29/17 at 20:05; Stop 01/29/17 at 20:06; Status DC Sevoflurane (Ultane) 90 ml STK-MED ONCE IH ; Start 01/29/17 at 20:50; Stop at 20:51; Status DC Hydromorphone HCl 30 ml @ 0 mls/hr CONT PRN PRN IV PROTOCOL Last administered on 01/29/17 21:26; Start 01/29/17 at 21:15 Enoxaparin Sodium (Lovenox 40mg Syringe) 40 mg QHS SQ Last administered on 21:56; Start 01/30/17 at 21:00 Albuterol Sulfate (Ventolin Neb Soln) 2.5 mg PRN Q6HRS PRN NEB SOA; Start at 12:45 Budesonide (Pulmicort) 0.5 mg RTBID NEB Last administered on 02/01/17 08:15; Start 01/30/17 at 20:00 Potassium Chloride 50 ml @ 50 mls/hr 1X ONCE IV ; Start 02/01/17 at 09:30; Stop 02/01/17 at 09:32; Status DC Potassium Chloride 100 ml @ 100 mls/hr Q1H IV Last administered on 02/01/17 09 :43; Start 02/01/17 at 10:00; Stop 02/01/17 at 11:59 Active Scripts Active Proair Hfa Inhaler (Albuterol Sulfate) 8.5 Gm Hfa.aer.ad 1 Puff INH PRN Q6HRS PRN Flovent 100MCG Diskus (Fluticasone Propionate) 100 Mcg Disk.w.dev 1 Puff IH BID Reported Zyrtec (Cetirizine Hcl) 10 Mg Tablet 1 Tab PO DAILY Fish Oil 1,000 Mg Capsule ([employer]-3 Fatty Acids/Fish Oil) 1 Each Capsule 1 Each PO Vitamin D-3 (Cholecalciferol (Vitamin D3)) 2,000 Unit Capsule 2,000 Unit PO Multivitamins (Multivitamin) 1 Each Tablet 1 Tab PO DAILY Vitals/I & O Vital Sign - Last 24 Hours 01/31/17 01/31/17 01/31/17 01/31/17 10:58 11:35 14:36 19:05 Temp 97.0 97.9 98.8 97.0 97.9 98.8 Pulse 71 66 66 Resp 18 20 18 B/P (MAP) 151/71 (97) 144/69 (94) 139/64 (89) Pulse Ox 96 94 95 O2 Delivery Room Air Room Air Room Air Room Air 01/31/17 01/31/17 02/01/17 02/01/17 20:05 23:11 03:05 07:00 Temp 99.3 98.4 98.8 99.3 98.4 98.8 Pulse 60 62 70 Resp 18 18 16 B/P (MAP) 156/69 (98) 144/68 (93) 123/56 (78) Pulse Ox 96 96 95 O2 Delivery Room Air Room Air Room Air Room Air 02/01/17 02/01/17 08:00 08:16 Pulse Ox 97 O2 Delivery Room Air Room Air Intake and Output 01/31/17 01/31/17 02/01/17 15:00 23:00 07:00 Intake Total 60 ml 1097 ml 1320.25 ml Output Total 800 ml 550 ml 1225 ml Balance -740 ml 547 ml 95.25 ml TIFFANY KEARNS MD Feb 01, 2017 10:26
[2017-02-01] MEDS ORDERED: HYDROmorphone 2 MG/ML VIAL IV PRN (10:30)
[2017-02-01 11:00] VITALS: BP 130/64
[2017-02-01 15:00] VITALS: BP 146/72
[2017-02-01] MEDS: ONDANSETRON PF 4 MG/2 ML VIAL. IV PRN (17:57)
[2017-02-01 19:33] VITALS: BP 150/73
[2017-02-01] MEDS: FAMOTIDINE 20 MG/2 ML VIAL IVP SCH (21:24)
[2017-02-01] MEDS: ENOXAPARIN 40 MG/0.4 ML SYRINGE. SQ SCH (21:24)
[2017-02-01 23:18] VITALS: BP 136/58
[2017-02-02 03:30] VITALS: BP 121/73
[2017-02-02] MEDS: IV NORMAL SALINE 1000ML BAG 1,000 ML IV SCH ×2 (04:41→13:52)
[2017-02-02 07:00] VITALS: BP 146/63
[2017-02-02] MEDS: BUDESONIDE 0.5 MG/2 ML NEBU. NEB SCH ×2 (07:18→19:21)
--- NOTE | 2017-02-02 10:00 | PDOC ---
PROGRESS NOTES Subjective Subjective improving, passed gas Objective Objective Vital Signs Date Time Temp Pulse Resp B/P (MAP) Pulse Ox O2 Delivery O2 Flow Rate FiO2 02/02/17 07:21 98 Room Air 02/02/17 07:00 97.9 64 14 146/63 (90) 97.9 01/30/17 20:00 2.0 Intake and Output 02/02/17 06:59 Intake Total 0 ml Output Total 350 ml Balance -350 ml Intake Oral 0 ml Output Urine Total 350 ml # Voids 5 Physical Exam Abdomen: Soft, No tenderness Plan Plan of Care DC NG, poss clears later tonight or tomorrow Comment Review of Relevant I have reviewed the following items александр (where applicable) has been applied. Labs Laboratory Tests Test 02/01/17 05:20 White Blood Count 8.3 x10^3/uL (4.0-11.0) Red Blood Count 3.81 x10^6/uL (3.50-5.40) Hemoglobin 11.8 g/dL (12.0-15.5) Hematocrit 36.0 % (36.0-47.0) Mean Corpuscular Volume 95 fL (79-100) Mean Corpuscular Hemoglobin 31 pg (25-35) Mean Corpuscular Hemoglobin Concent 33 g/dL (31-37) Red Cell Distribution Width 12.4 % (11.5-14.5) Platelet Count 263 x10^3/uL (140-400) Neutrophils (%) (Auto) 70 % (31-73) Lymphocytes (%) (Auto) 19 % (24-48) Monocytes (%) (Auto) 8 % (0-9) Eosinophils (%) (Auto) 3 % (0-3) Basophils (%) (Auto) 1 % (0-3) Neutrophils # (Auto) 5.8 x10^3uL (1.8-7.7) Lymphocytes # (Auto) 1.6 x10^3/uL (1.0-4.8) Monocytes # (Auto) 0.7 x10^3/uL (0.0-1.1) Eosinophils # (Auto) 0.2 x10^3/uL (0.0-0.7) Basophils # (Auto) 0.0 x10^3/uL (0.0-0.2) Sodium Level 137 mmol/L (136-145) Potassium Level 3.3 mmol/L (3.5-5.1) Chloride Level 100 mmol/L (98-107) Carbon Dioxide Level 26 mmol/L (21-32) Anion Gap 11 (6-14) Blood Urea Nitrogen 10 mg/dL (7-20) Creatinine 0.8 mg/dL (0.6-1.0) Estimated GFR (Cockcroft-Gault) 74.2 Glucose Level 75 mg/dL (70-99) Calcium Level 8.7 mg/dL (8.5-10.1) Microbiology 01/29/17 Gram Stain - Final, Complete Medications Current Medications Morphine Sulfate 4 mg PRN Q2HR PRN IV PAIN Last administered on 01/29/17 14:59 ; Start 01/29/17 at 01:00; Stop 01/29/17 at 16:35; Status DC Ondansetron HCl (Zofran) 4 mg PRN Q6HRS PRN IV NAUSEA/VOMITING Last administered on 02/01/17 17:57; Start 01/29/17 at 01:00 Sodium Chloride 1,000 ml @ 100 mls/hr Q10H IV Last administered on 02/02/17 04 :41; Start 01/29/17 at 00:45 Iohexol (Omnipaque 350 Mg/ml) 400 ml 1X ONCE PO ; Start 01/29/17 at 08:00; Stop 01/29/17 at 08:03; Status DC Info (Do NOT chart on this entry -- for MONITORING) 1 each PRN DAILY PRN MC SEE COMMENTS; Start 01/29/17 at 08:15; Stop 01/29/17 at 16:37; Status DC Throat Lozenges (Chloraseptic) 1 spray PRN Q2HR PRN PO SORE THROAT; Start at 11:45 Iohexol (Omnipaque 350 Mg/ml) 100 ml 1X ONCE PO ; Start 01/29/17 at 14:00; Stop 01/29/17 at 14:01; Status DC Info (Do NOT chart on this entry -- for MONITORING) 1 each PRN DAILY PRN MC SEE COMMENTS; Start 01/29/17 at 14:00; Stop 01/31/17 at 13:59; Status DC Morphine Sulfate 4 mg PRN Q1HR PRN IV PAIN Last administered on 01/29/17 16:50 ; Start 01/29/17 at 16:45 Famotidine (Pepcid) 20 mg QHS IVP Last administered on 02/01/17 21:24; Start at 21:00 Succinylcholine Chloride (Anectine) 200 mg STK-MED ONCE .ROUTE ; Start 01/29/17 at 18:10; Stop 01/29/17 at 18:11; Status DC Rocuronium [place] (Zemuron) 50 mg STK-MED ONCE .ROUTE ; Start 01/29/17 at 18:10 ; Stop 01/29/17 at 18:11; Status DC Fentanyl Citrate (Fentanyl 2ml Vial) 50 mcg PRN Q5MIN PRN IV Acute Pain; Start 01/29/17 at 07:00; Stop 01/30/17 at 01:00; Status DC Morphine Sulfate 4 mg PRN Q10MIN PRN IV Moderate Pain Last administered on 21:08; Start 01/29/17 at 18:15; Stop 01/30/17 at 01:00; Status DC Hydromorphone HCl (Dilaudid) 0.4 mg PRN Q10MIN PRN IV Moderate to severe pain; Start 01/29/17 at 18:15; Stop 01/30/17 at 01:00; Status DC Meperidine HCl (Demerol) 12.5 mg PRN Q5MIN PRN IV SHIVERING; Start 01/29/17 at 18:15; Stop 01/30/17 at 01:00; Status DC Prochlorperazine Edisylate (Compazine) 5 mg PRN Q6HRS PRN IV Nausea/Vomiting, 1st Choice Last administered on 01/29/17 21:27; Start 01/29/17 at 18:15; Stop 01/30/17 at 01:00; Status DC Diphenhydramine HCl (Benadryl) 12.5 mg PRN Q2HR PRN IV ITCHING; Start 01/29/17 at 18:15; Stop 01/30/17 at 01:00; Status DC Midazolam HCl (Versed) 2 mg PRN 1X PRN IV PRIOR TO PROCEDURE; Start 01/29/17 at 18:15; Stop 01/29/17 at 22:10; Status DC Midazolam HCl (Versed) 1 mg PRN 1X PRN IV PRIOR TO PROCEDURE; Start 01/29/17 at 18:15; Stop 01/29/17 at 22:10; Status DC Fentanyl Citrate (Fentanyl 2ml Vial) 25 mcg PRN Q5MIN PRN IV X 2 DOSES FOR PAIN ; Start 01/29/17 at 18:15; Stop 01/29/17 at 22:10; Status DC Fentanyl Citrate (Fentanyl 2ml Vial) 50 mcg PRN Q5MIN PRN IV X 2 DOSES FOR PAIN ; Start 01/29/17 at 18:15; Stop 01/29/17 at 22:10; Status DC Ringer's Solution 1,000 ml @ 125 mls/hr Q8H IV Last administered on 01/29/17t 20:48; Start 01/29/17 at 18:10; Stop 01/29/17 at 22:10; Status DC Lidocaine HCl 2 ml 1X PRN PRN ID IV START; Start 01/29/17 at 18:15; Stop at 22:10; Status DC Propofol 20 ml @ As Directed STK-MED ONCE IV ; Start 01/29/17 at 18:14; Stop 01/29 at 18:15; Status DC Lidocaine HCl (Lidocaine Pf 2% Vial) 5 ml STK-MED ONCE .ROUTE ; Start 01/29/17 at 18:14; Stop 01/29/17 at 18:15; Status DC Dexamethasone Sodium Phosphate (Decadron) 20 mg STK-MED ONCE .ROUTE ; Start 01/29 at 18:14; Stop 01/29/17 at 18:15; Status DC Ondansetron HCl (Zofran) 4 mg STK-MED ONCE .ROUTE ; Start 01/29/17 at 18:14; Stop 01/29/17 at 18:15; Status DC Fentanyl Citrate (Fentanyl 5ml Vial) 250 mcg STK-MED ONCE .ROUTE ; Start at 18:14; Stop 01/29/17 at 18:15; Status DC Cefazolin Sodium/ Dextrose 50 ml @ As Directed STK-MED ONCE IV ; Start 01/29/17 at 18:53; Stop 01/29/17 at 18:54; Status DC Piperacillin Sod/ Tazobactam Sod 3.375 gm/Sodium Chloride 50 ml @ 100 mls/hr 1X ONCE IV Last administered on 01/29/17 19:39; Start 01/29/17 at 19:15; Stop 01/29/17 at 19:44; Status DC Glycopyrrolate (Robinul) 1 mg STK-MED ONCE .ROUTE ; Start 01/29/17 at 20:05; Stop 01/29/17 at 20:06; Status DC Neostigmine Methylsulfate 5 mg STK-MED ONCE .ROUTE ; Start 01/29/17 at 20:05; Stop 01/29/17 at 20:06; Status DC Sevoflurane (Ultane) 90 ml STK-MED ONCE IH ; Start 01/29/17 at 20:50; Stop at 20:51; Status DC Hydromorphone HCl 30 ml @ 0 mls/hr CONT PRN PRN IV PROTOCOL Last administered on 01/29/17 21:26; Start 01/29/17 at 21:15; Stop 02/01/17 at 10:24; Status DC Enoxaparin Sodium (Lovenox 40mg Syringe) 40 mg QHS SQ Last administered on 21:24; Start 01/30/17 at 21:00 Albuterol Sulfate (Ventolin Neb Soln) 2.5 mg PRN Q6HRS PRN NEB SOA; Start at 12:45 Budesonide (Pulmicort) 0.5 mg RTBID NEB Last administered on 02/02/17 07:18; Start 01/30/17 at 20:00 Potassium Chloride 50 ml @ 50 mls/hr 1X ONCE IV ; Start 02/01/17 at 09:30; Stop 02/01/17 at 09:32; Status DC Potassium Chloride 100 ml @ 100 mls/hr Q1H IV Last administered on 02/01/17 11 :07; Start 02/01/17 at 10:00; Stop 02/01/17 at 11:59; Status DC Hydromorphone HCl (Dilaudid) 1 mg PRN Q4HRS PRN IV PAIN Last administered on 17:45; Start 02/01/17 at 10:30 Active Scripts Active Proair Hfa Inhaler (Albuterol Sulfate) 8.5 Gm Hfa.aer.ad 1 Puff INH PRN Q6HRS PRN Flovent 100MCG Diskus (Fluticasone Propionate) 100 Mcg Disk.w.dev 1 Puff IH BID Reported Zyrtec (Cetirizine Hcl) 10 Mg Tablet 1 Tab PO DAILY Fish Oil 1,000 Mg Capsule ([place]-3 Fatty Acids/Fish Oil) 1 Each Capsule 1 Each PO Vitamin D-3 (Cholecalciferol (Vitamin D3)) 2,000 Unit Capsule 2,000 Unit PO Multivitamins (Multivitamin) 1 Each Tablet 1 Tab PO DAILY Vitals/I & O Vital Sign - Last 24 Hours 02/01/17 02/01/17 02/01/17 02/01/17 11:00 15:00 17:45 18:20 Temp 97.7 97.5 97.7 97.5 Pulse 67 61 Resp 20 20 B/P (MAP) 130/64 (86) 146/72 (96) Pulse Ox 95 97 O2 Delivery Room Air Room Air Room Air Room Air 02/01/17 02/01/17 02/01/17 02/02/17 19:33 20:13 23:18 03:30 Temp 97.7 98.1 98.1 97.7 98.1 98.1 Pulse 65 67 70 Resp 18 18 18 B/P (MAP) 150/73 (98) 136/58 (84) 121/73 (89) Pulse Ox 95 93 96 O2 Delivery Room Air Room Air Room Air Room Air 02/02/17 02/02/17 07:00 07:21 Temp 97.9 97.9 Pulse 64 Resp 14 B/P (MAP) 146/63 (90) Pulse Ox 97 98 O2 Delivery Room Air Room Air Intake and Output 02/01/17 02/01/17 02/02/17 14:59 22:59 06:59 Intake Total 0 ml Output Total 350 ml Balance -350 ml STACEY SANTANA MD Feb 02, 2017 10:00
--- NOTE | 2017-02-02 10:11 | PDOC ---
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 Hypokalemia post op, resolved History of Present Illness History of Present Illness NO pain Just needing 1 IV push dilaudid last night, none anymore NO fevers NO white ct K of 3.3 was replaced yesterday Dw GS POsitive flatus PLAN: Dc NGT today Sips of water and ice chips Start PO percocet Dw pt and family and RN Vitals Vitals Vital Signs Date Time Temp Pulse Resp B/P (MAP) Pulse Ox O2 Delivery O2 Flow Rate FiO2 02/02/17 07:35 Room Air 02/02/17 07:21 98 02/02/17 07:00 97.9 64 14 146/63 (90) 97.9 Physical Exam General: Alert, Oriented X3, Cooperative, No acute distress Heart: Regular rate, Normal S1, Normal S2, No murmurs Lungs: Clear Abdomen: Soft, No tenderness Extremities: No clubbing, No edema Skin: No rashes Review of Systems Review of Systems neg emesis, positiv flatus, no diarrhea, fevers, CP, SOA Comment Review of Relevant I have reviewed the following items александр (where applicable) has been applied. Labs Laboratory Tests Test 02/01/17 05:20 White Blood Count 8.3 x10^3/uL (4.0-11.0) Red Blood Count 3.81 x10^6/uL (3.50-5.40) Hemoglobin 11.8 g/dL (12.0-15.5) Hematocrit 36.0 % (36.0-47.0) Mean Corpuscular Volume 95 fL (79-100) Mean Corpuscular Hemoglobin 31 pg (25-35) Mean Corpuscular Hemoglobin Concent 33 g/dL (31-37) Red Cell Distribution Width 12.4 % (11.5-14.5) Platelet Count 263 x10^3/uL (140-400) Neutrophils (%) (Auto) 70 % (31-73) Lymphocytes (%) (Auto) 19 % (24-48) Monocytes (%) (Auto) 8 % (0-9) Eosinophils (%) (Auto) 3 % (0-3) Basophils (%) (Auto) 1 % (0-3) Neutrophils # (Auto) 5.8 x10^3uL (1.8-7.7) Lymphocytes # (Auto) 1.6 x10^3/uL (1.0-4.8) Monocytes # (Auto) 0.7 x10^3/uL (0.0-1.1) Eosinophils # (Auto) 0.2 x10^3/uL (0.0-0.7) Basophils # (Auto) 0.0 x10^3/uL (0.0-0.2) Sodium Level 137 mmol/L (136-145) Potassium Level 3.3 mmol/L (3.5-5.1) Chloride Level 100 mmol/L (98-107) Carbon Dioxide Level 26 mmol/L (21-32) Anion Gap 11 (6-14) Blood Urea Nitrogen 10 mg/dL (7-20) Creatinine 0.8 mg/dL (0.6-1.0) Estimated GFR (Cockcroft-Gault) 74.2 Glucose Level 75 mg/dL (70-99) Calcium Level 8.7 mg/dL (8.5-10.1) Microbiology 01/29/17 Gram Stain - Final, Complete Medications Current Medications Morphine Sulfate 4 mg PRN Q2HR PRN IV PAIN Last administered on 01/29/17 14:59 ; Start 01/29/17 at 01:00; Stop 01/29/17 at 16:35; Status DC Ondansetron HCl (Zofran) 4 mg PRN Q6HRS PRN IV NAUSEA/VOMITING Last administered on 02/01/17 17:57; Start 01/29/17 at 01:00 Sodium Chloride 1,000 ml @ 100 mls/hr Q10H IV Last administered on 02/02/17 04 :41; Start 01/29/17 at 00:45 Iohexol (Omnipaque 350 Mg/ml) 400 ml 1X ONCE PO ; Start 01/29/17 at 08:00; Stop 01/29/17 at 08:03; Status DC Info (Do NOT chart on this entry -- for MONITORING) 1 each PRN DAILY PRN MC SEE COMMENTS; Start 01/29/17 at 08:15; Stop 01/29/17 at 16:37; Status DC Throat Lozenges (Chloraseptic) 1 spray PRN Q2HR PRN PO SORE THROAT; Start at 11:45 Iohexol (Omnipaque 350 Mg/ml) 100 ml 1X ONCE PO ; Start 01/29/17 at 14:00; Stop 01/29/17 at 14:01; Status DC Info (Do NOT chart on this entry -- for MONITORING) 1 each PRN DAILY PRN MC SEE COMMENTS; Start 01/29/17 at 14:00; Stop 01/31/17 at 13:59; Status DC Morphine Sulfate 4 mg PRN Q1HR PRN IV PAIN Last administered on 01/29/17 16:50 ; Start 01/29/17 at 16:45 Famotidine (Pepcid) 20 mg QHS IVP Last administered on 02/01/17 21:24; Start at 21:00 Succinylcholine Chloride (Anectine) 200 mg STK-MED ONCE .ROUTE ; Start 01/29/17 at 18:10; Stop 01/29/17 at 18:11; Status DC Rocuronium [place] (Zemuron) 50 mg STK-MED ONCE .ROUTE ; Start 01/29/17 at 18:10 ; Stop 01/29/17 at 18:11; Status DC Fentanyl Citrate (Fentanyl 2ml Vial) 50 mcg PRN Q5MIN PRN IV Acute Pain; Start 01/29/17 at 07:00; Stop 01/30/17 at 01:00; Status DC Morphine Sulfate 4 mg PRN Q10MIN PRN IV Moderate Pain Last administered on 21:08; Start 01/29/17 at 18:15; Stop 01/30/17 at 01:00; Status DC Hydromorphone HCl (Dilaudid) 0.4 mg PRN Q10MIN PRN IV Moderate to severe pain; Start 01/29/17 at 18:15; Stop 01/30/17 at 01:00; Status DC Meperidine HCl (Demerol) 12.5 mg PRN Q5MIN PRN IV SHIVERING; Start 01/29/17 at 18:15; Stop 01/30/17 at 01:00; Status DC Prochlorperazine Edisylate (Compazine) 5 mg PRN Q6HRS PRN IV Nausea/Vomiting, 1st Choice Last administered on 7/1/17at 21:27; Start 01/29/17 at 18:15; Stop 01/30/17 at 01:00; Status DC Diphenhydramine HCl (Benadryl) 12.5 mg PRN Q2HR PRN IV ITCHING; Start 01/29/17 at 18:15; Stop 01/30/17 at 01:00; Status DC Midazolam HCl (Versed) 2 mg PRN 1X PRN IV PRIOR TO PROCEDURE; Start 01/29/17 at 18:15; Stop 01/29/17 at 22:10; Status DC Midazolam HCl (Versed) 1 mg PRN 1X PRN IV PRIOR TO PROCEDURE; Start 01/29/17 at 18:15; Stop 01/29/17 at 22:10; Status DC Fentanyl Citrate (Fentanyl 2ml Vial) 25 mcg PRN Q5MIN PRN IV X 2 DOSES FOR PAIN ; Start 01/29/17 at 18:15; Stop 01/29/17 at 22:10; Status DC Fentanyl Citrate (Fentanyl 2ml Vial) 50 mcg PRN Q5MIN PRN IV X 2 DOSES FOR PAIN ; Start 01/29/17 at 18:15; Stop 01/29/17 at 22:10; Status DC Ringer's Solution 1,000 ml @ 125 mls/hr Q8H IV Last administered on 01/29/17t 20:48; Start 01/29/17 at 18:10; Stop 01/29/17 at 22:10; Status DC Lidocaine HCl 2 ml 1X PRN PRN ID IV START; Start 01/29/17 at 18:15; Stop at 22:10; Status DC Propofol 20 ml @ As Directed STK-MED ONCE IV ; Start 01/29/17 at 18:14; Stop 01/29 at 18:15; Status DC Lidocaine HCl (Lidocaine Pf 2% Vial) 5 ml STK-MED ONCE .ROUTE ; Start 01/29/17 at 18:14; Stop 01/29/17 at 18:15; Status DC Dexamethasone Sodium Phosphate (Decadron) 20 mg STK-MED ONCE .ROUTE ; Start 01/29 at 18:14; Stop 01/29/17 at 18:15; Status DC Ondansetron HCl (Zofran) 4 mg STK-MED ONCE .ROUTE ; Start 01/29/17 at 18:14; Stop 01/29/17 at 18:15; Status DC Fentanyl Citrate (Fentanyl 5ml Vial) 250 mcg STK-MED ONCE .ROUTE ; Start at 18:14; Stop 01/29/17 at 18:15; Status DC Cefazolin Sodium/ Dextrose 50 ml @ As Directed STK-MED ONCE IV ; Start 01/29/17 at 18:53; Stop 01/29/17 at 18:54; Status DC Piperacillin Sod/ Tazobactam Sod 3.375 gm/Sodium Chloride 50 ml @ 100 mls/hr 1X ONCE IV Last administered on 01/29/17 19:39; Start 01/29/17 at 19:15; Stop 01/29/17 at 19:44; Status DC Glycopyrrolate (Robinul) 1 mg STK-MED ONCE .ROUTE ; Start 01/29/17 at 20:05; Stop 01/29/17 at 20:06; Status DC Neostigmine Methylsulfate 5 mg STK-MED ONCE .ROUTE ; Start 01/29/17 at 20:05; Stop 01/29/17 at 20:06; Status DC Sevoflurane (Ultane) 90 ml STK-MED ONCE IH ; Start 01/29/17 at 20:50; Stop at 20:51; Status DC Hydromorphone HCl 30 ml @ 0 mls/hr CONT PRN PRN IV PROTOCOL Last administered on 01/29/17 21:26; Start 01/29/17 at 21:15; Stop 02/01/17 at 10:24; Status DC Enoxaparin Sodium (Lovenox 40mg Syringe) 40 mg QHS SQ Last administered on 21:24; Start 01/30/17 at 21:00 Albuterol Sulfate (Ventolin Neb Soln) 2.5 mg PRN Q6HRS PRN NEB SOA; Start at 12:45 Budesonide (Pulmicort) 0.5 mg RTBID NEB Last administered on 02/02/17 07:18; Start 01/30/17 at 20:00 Potassium Chloride 50 ml @ 50 mls/hr 1X ONCE IV ; Start 02/01/17 at 09:30; Stop 02/01/17 at 09:32; Status DC Potassium Chloride 100 ml @ 100 mls/hr Q1H IV Last administered on 02/01/17 11 :07; Start 02/01/17 at 10:00; Stop 02/01/17 at 11:59; Status DC Hydromorphone HCl (Dilaudid) 1 mg PRN Q4HRS PRN IV PAIN Last administered on 17:45; Start 02/01/17 at 10:30 Active Scripts Active Proair Hfa Inhaler (Albuterol Sulfate) 8.5 Gm Hfa.aer.ad 1 Puff INH PRN Q6HRS PRN Flovent 100MCG Diskus (Fluticasone Propionate) 100 Mcg Disk.w.dev 1 Puff IH BID Reported Zyrtec (Cetirizine Hcl) 10 Mg Tablet 1 Tab PO DAILY Fish Oil 1,000 Mg Capsule ([place]-3 Fatty Acids/Fish Oil) 1 Each Capsule 1 Each PO Vitamin D-3 (Cholecalciferol (Vitamin D3)) 2,000 Unit Capsule 2,000 Unit PO Multivitamins (Multivitamin) 1 Each Tablet 1 Tab PO DAILY Vitals/I & O Vital Sign - Last 24 Hours 02/01/17 02/01/17 02/01/17 02/01/17 11:00 15:00 17:45 18:20 Temp 97.7 97.5 97.7 97.5 Pulse 67 61 Resp 20 20 B/P (MAP) 130/64 (86) 146/72 (96) Pulse Ox 95 97 O2 Delivery Room Air Room Air Room Air Room Air 02/01/17 02/01/17 02/01/17 02/02/17 19:33 20:13 23:18 03:30 Temp 97.7 98.1 98.1 97.7 98.1 98.1 Pulse 65 67 70 Resp 18 18 18 B/P (MAP) 150/73 (98) 136/58 (84) 121/73 (89) Pulse Ox 95 93 96 O2 Delivery Room Air Room Air Room Air Room Air 02/02/17 02/02/17 02/02/17 07:00 07:21 07:35 Temp 97.9 97.9 Pulse 64 Resp 14 B/P (MAP) 146/63 (90) Pulse Ox 97 98 O2 Delivery Room Air Room Air Room Air Intake and Output 02/01/17 02/01/17 02/02/17 15:00 23:00 07:00 Intake Total 0 ml Output Total 350 ml Balance -350 ml TIFFANY KEARNS MD Feb 02, 2017 10:11
[2017-02-02] MEDS ORDERED: oxyCODONE/APAP 5/325 1 TAB TABLET PO PRN (10:15)
[2017-02-02 11:00] VITALS: BP 152/61
[2017-02-02 15:00] VITALS: BP 132/69
[2017-02-02 19:00] VITALS: BP 140/57
[2017-02-02] MEDS: FAMOTIDINE 20 MG/2 ML VIAL IVP SCH (20:21)
[2017-02-02] MEDS: ENOXAPARIN 40 MG/0.4 ML SYRINGE. SQ SCH (20:22)
[2017-02-02 23:00] VITALS: BP 132/64
[2017-02-03] MEDS: IV NORMAL SALINE 1000ML BAG 1,000 ML IV SCH (00:53)
[2017-02-03 03:00] VITALS: BP 128/63
[2017-02-03 07:15] VITALS: BP 123/70
[2017-02-03] MEDS: BUDESONIDE 0.5 MG/2 ML NEBU. NEB SCH ×2 (07:17→20:00)
--- NOTE | 2017-02-03 09:03 | PDOC ---
REGINA DAN APRN 02/03/17 0903: SURGICAL PROGRESS NOTE Subjective tolerating clears + stools no/v Vital Signs Vital Signs Date Time Temp Pulse Resp B/P (MAP) Pulse Ox O2 Delivery O2 Flow Rate FiO2 02/03/17 07:19 96 Room Air 02/03/17 07:15 98.5 63 16 123/70 (87) 98.5 I&O Intake and Output 02/03/17 07:00 Intake Total 1440 ml Balance 1440 ml Intake Oral 240 ml IV Total 1200 ml # Voids 1 General: Alert, Oriented X3, Cooperative, No acute distress Abdomen: Soft, Other (lap sites c/d/i, no erythema ) Problem List advance to full liquids, soft for dinner if tolerating dc ivf possible DC tuesday Problems: STACEY SANTANA MD 02/03/17 1234: SURGICAL PROGRESS NOTE Assessment/Plan Agree with above, poss DC tomorrow Problems: REGINA DAN APRN Feb 03, 2017 09:03 STACEY SANTANA MD Feb 03, 2017 12:34
--- NOTE | 2017-02-03 09:55 | PDOC ---
PROGRESS NOTES Chief Complaint Chief Complaint s/p laparotomy, reduction of internal hernia, cecopexy 01/28 SIRS wo infection POst op pain off [employer] Hypokalemia post op, resolved History of Present Illness History of Present Illness COnt to do well, off nGT MInimal pain Tolerating PO POsitive flatus PLAN: CPM Likely dc alisa Vitals Vitals Vital Signs Date Time Temp Pulse Resp B/P (MAP) Pulse Ox O2 Delivery O2 Flow Rate FiO2 02/03/17 07:19 96 Room Air 02/03/17 07:15 98.5 63 16 123/70 (87) 98.5 Physical Exam General: Alert, Oriented X3, Cooperative, No acute distress Heart: Regular rate, Normal S1, Normal S2, No murmurs Lungs: Clear Abdomen: Soft, Other (lap sites c/d/i, no erythema ) Extremities: No clubbing, No edema Skin: No rashes Review of Systems Review of Systems neg 14 pt systems Comment Review of Relevant I have reviewed the following items александр (where applicable) has been applied. Labs Microbiology 01/29/17 Gram Stain - Final, Complete Medications Current Medications Morphine Sulfate 4 mg PRN Q2HR PRN IV PAIN Last administered on 01/29/17 14:59 ; Start 01/29/17 at 01:00; Stop 01/29/17 at 16:35; Status DC Ondansetron HCl (Zofran) 4 mg PRN Q6HRS PRN IV NAUSEA/VOMITING Last administered on 02/01/17 17:57; Start 01/29/17 at 01:00 Sodium Chloride 1,000 ml @ 50 mls/hr Q20H IV Last administered on 02/03/17 00: 53; Start 01/29/17 at 00:45 Iohexol (Omnipaque 350 Mg/ml) 400 ml 1X ONCE PO ; Start 01/29/17 at 08:00; Stop 01/29/17 at 08:03; Status DC Info (Do NOT chart on this entry -- for MONITORING) 1 each PRN DAILY PRN MC SEE COMMENTS; Start 01/29/17 at 08:15; Stop 01/29/17 at 16:37; Status DC Throat Lozenges (Chloraseptic) 1 spray PRN Q2HR PRN PO SORE THROAT; Start at 11:45 Iohexol (Omnipaque 350 Mg/ml) 100 ml 1X ONCE PO ; Start 01/29/17 at 14:00; Stop 01/29/17 at 14:01; Status DC Info (Do NOT chart on this entry -- for MONITORING) 1 each PRN DAILY PRN MC SEE COMMENTS; Start 01/29/17 at 14:00; Stop 01/31/17 at 13:59; Status DC Morphine Sulfate 4 mg PRN Q1HR PRN IV PAIN Last administered on 01/29/17 16:50 ; Start 01/29/17 at 16:45 Famotidine (Pepcid) 20 mg QHS IVP Last administered on 02/02/17 20:21; Start at 21:00 Succinylcholine Chloride (Anectine) 200 mg STK-MED ONCE .ROUTE ; Start 01/29/17 at 18:10; Stop 01/29/17 at 18:11; Status DC Rocuronium [place] (Zemuron) 50 mg STK-MED ONCE .ROUTE ; Start 01/29/17 at 18:10 ; Stop 01/29/17 at 18:11; Status DC Fentanyl Citrate (Fentanyl 2ml Vial) 50 mcg PRN Q5MIN PRN IV Acute Pain; Start 01/29/17 at 07:00; Stop 01/30/17 at 01:00; Status DC Morphine Sulfate 4 mg PRN Q10MIN PRN IV Moderate Pain Last administered on 21:08; Start 01/29/17 at 18:15; Stop 01/30/17 at 01:00; Status DC Hydromorphone HCl (Dilaudid) 0.4 mg PRN Q10MIN PRN IV Moderate to severe pain; Start 01/29/17 at 18:15; Stop 01/30/17 at 01:00; Status DC Meperidine HCl (Demerol) 12.5 mg PRN Q5MIN PRN IV SHIVERING; Start 01/29/17 at 18:15; Stop 01/30/17 at 01:00; Status DC Prochlorperazine Edisylate (Compazine) 5 mg PRN Q6HRS PRN IV Nausea/Vomiting, 1st Choice Last administered on 01/29/17 21:27; Start 01/29/17 at 18:15; Stop 01/30/17 at 01:00; Status DC Diphenhydramine HCl (Benadryl) 12.5 mg PRN Q2HR PRN IV ITCHING; Start 01/29/17 at 18:15; Stop 01/30/17 at 01:00; Status DC Midazolam HCl (Versed) 2 mg PRN 1X PRN IV PRIOR TO PROCEDURE; Start 01/29/17 at 18:15; Stop 01/29/17 at 22:10; Status DC Midazolam HCl (Versed) 1 mg PRN 1X PRN IV PRIOR TO PROCEDURE; Start 01/29/17 at 18:15; Stop 01/29/17 at 22:10; Status DC Fentanyl Citrate (Fentanyl 2ml Vial) 25 mcg PRN Q5MIN PRN IV X 2 DOSES FOR PAIN ; Start 01/29/17 at 18:15; Stop 01/29/17 at 22:10; Status DC Fentanyl Citrate (Fentanyl 2ml Vial) 50 mcg PRN Q5MIN PRN IV X 2 DOSES FOR PAIN ; Start 01/29/17 at 18:15; Stop 01/29/17 at 22:10; Status DC Ringer's Solution 1,000 ml @ 125 mls/hr Q8H IV Last administered on 01/29/17t 20:48; Start 01/29/17 at 18:10; Stop 01/29/17 at 22:10; Status DC Lidocaine HCl 2 ml 1X PRN PRN ID IV START; Start 01/29/17 at 18:15; Stop at 22:10; Status DC Propofol 20 ml @ As Directed STK-MED ONCE IV ; Start 01/29/17 at 18:14; Stop 01/29 at 18:15; Status DC Lidocaine HCl (Lidocaine Pf 2% Vial) 5 ml STK-MED ONCE .ROUTE ; Start 01/29/17 at 18:14; Stop 01/29/17 at 18:15; Status DC Dexamethasone Sodium Phosphate (Decadron) 20 mg STK-MED ONCE .ROUTE ; Start 01/29 at 18:14; Stop 01/29/17 at 18:15; Status DC Ondansetron HCl (Zofran) 4 mg STK-MED ONCE .ROUTE ; Start 01/29/17 at 18:14; Stop 01/29/17 at 18:15; Status DC Fentanyl Citrate (Fentanyl 5ml Vial) 250 mcg STK-MED ONCE .ROUTE ; Start at 18:14; Stop 01/29/17 at 18:15; Status DC Cefazolin Sodium/ Dextrose 50 ml @ As Directed STK-MED ONCE IV ; Start 01/29/17 at 18:53; Stop 01/29/17 at 18:54; Status DC Piperacillin Sod/ Tazobactam Sod 3.375 gm/Sodium Chloride 50 ml @ 100 mls/hr 1X ONCE IV Last administered on 01/29/17 19:39; Start 01/29/17 at 19:15; Stop 01/29/17 at 19:44; Status DC Glycopyrrolate (Robinul) 1 mg STK-MED ONCE .ROUTE ; Start 01/29/17 at 20:05; Stop 01/29/17 at 20:06; Status DC Neostigmine Methylsulfate 5 mg STK-MED ONCE .ROUTE ; Start 01/29/17 at 20:05; Stop 01/29/17 at 20:06; Status DC Sevoflurane (Ultane) 90 ml STK-MED ONCE IH ; Start 01/29/17 at 20:50; Stop at 20:51; Status DC Hydromorphone HCl 30 ml @ 0 mls/hr CONT PRN PRN IV PROTOCOL Last administered on 01/29/17 21:26; Start 01/29/17 at 21:15; Stop 02/01/17 at 10:24; Status DC Enoxaparin Sodium (Lovenox 40mg Syringe) 40 mg QHS SQ Last administered on 20:22; Start 01/30/17 at 21:00 Albuterol Sulfate (Ventolin Neb Soln) 2.5 mg PRN Q6HRS PRN NEB SOA; Start at 12:45 Budesonide (Pulmicort) 0.5 mg RTBID NEB Last administered on 02/03/17 07:17; Start 01/30/17 at 20:00 Potassium Chloride 50 ml @ 50 mls/hr 1X ONCE IV ; Start 02/01/17 at 09:30; Stop 02/01/17 at 09:32; Status DC Potassium Chloride 100 ml @ 100 mls/hr Q1H IV Last administered on 02/01/17 11 :07; Start 02/01/17 at 10:00; Stop 02/01/17 at 11:59; Status DC Hydromorphone HCl (Dilaudid) 1 mg PRN Q4HRS PRN IV PAIN Last administered on t 17:45; Start 02/01/17 at 10:30 Oxycodone/ Acetaminophen (Percocet 5/325) 1 tab PRN Q4HRS PRN PO PAIN; Start at 10:15 Active Scripts Active Proair Hfa Inhaler (Albuterol Sulfate) 8.5 Gm Hfa.aer.ad 1 Puff INH PRN Q6HRS PRN Flovent 100MCG Diskus (Fluticasone Propionate) 100 Mcg Disk.w.dev 1 Puff IH BID Reported Zyrtec (Cetirizine Hcl) 10 Mg Tablet 1 Tab PO DAILY Fish Oil 1,000 Mg Capsule ([place]-3 Fatty Acids/Fish Oil) 1 Each Capsule 1 Each PO Vitamin D-3 (Cholecalciferol (Vitamin D3)) 2,000 Unit Capsule 2,000 Unit PO Multivitamins (Multivitamin) 1 Each Tablet 1 Tab PO DAILY Vitals/I & O Vital Sign - Last 24 Hours 02/02/17 02/02/17 02/02/17 02/02/17 11:00 15:00 19:00 19:40 Temp 99.3 99.1 99.3 99.3 99.1 99.3 Pulse 65 61 57 Resp 14 14 16 B/P (MAP) 152/61 (91) 132/69 (90) 140/57 (84) Pulse Ox 96 96 94 O2 Delivery Room Air Room Air Room Air Room Air 02/02/17 02/03/17 02/03/17 02/03/17 23:00 03:00 07:15 07:19 Temp 98.4 99.0 98.5 98.4 99.0 98.5 Pulse 61 68 63 Resp 18 18 16 B/P (MAP) 132/64 (86) 128/63 (84) 123/70 (87) Pulse Ox 96 95 96 96 O2 Delivery Room Air Room Air Room Air Intake and Output 02/02/17 02/02/17 02/03/17 14:59 22:59 06:59 Intake Total 1440 ml Balance 1440 ml TIFFANY KEARNS MD Feb 03, 2017 09:55
[2017-02-03 11:14] VITALS: BP 132/70
[2017-02-03 15:03] VITALS: BP 131/75
[2017-02-03 19:00] VITALS: BP 147/73
[2017-02-03] MEDS ORDERED: FAMOTIDINE 20 MG TABLET. PO SCH (21:00)
[2017-02-03 23:00] VITALS: BP 133/66
[2017-02-04 03:00] VITALS: BP 127/75
[2017-02-04 07:28] VITALS: BP 118/74
[2017-02-04] MEDS: BUDESONIDE 0.5 MG/2 ML NEBU. NEB SCH (09:07)
[2017-02-04 10:36] VITALS: BP 106/58
--- NOTE | 2017-02-04 11:12 | PDOC3 ---
Discharge Summary Visit Information Date of Admission: Jan 29, 2017 Date of Discharge: Feb 04, 2017 Admitting Diagnosis Comment: s/p laparotomy, reduction of internal hernia, cecopexy 01/28 SIRS wo infection POst op pain off BAG SEWER Hypokalemia post op, resolved Brief Hospital Course Allergies Allergies Coded Allergies Type Severity Reaction Last Updated Verified No Known Drug Allergies 01/23/17 No Vital Signs Vital Signs Date Time Temp Pulse Resp B/P (MAP) Pulse Ox O2 Delivery O2 Flow Rate FiO2 02/04/17 10:36 97.7 72 18 106/58 (74) 98 Room Air 97.7 Brief Hospital Course Ms. Jc is a 56 old [sex] who presented with [ ] abd pain, CT showed hernia and some signs of obstruction, underwent the above procedure, Was on BAG SEWER post op, not needing to press so often, NEeded to have NGT few days, accidentally had liquid diet x 1 day per medical error, FOrtunately no untoward effects, PT did well, tolerating GI soft, NOt needing PO narcs for pain, Dressing dry, Dw pt and hsuband at bedside Ff up GS 2 weeks Rx in chart Dispo: home COnults GS Proc; Ex lap, hernia repair cepopexy Discharge Information Condition at Discharge: Improved, Stable Disposition/Orders: D/C to Home Scheduled Cetirizine Hcl (Zyrtec), 1 TAB PO DAILY, (Reported) Fluticasone Propionate (Flovent 100MCG Diskus), 1 PUFF IH BID Multivitamin (Multivitamins), 1 TAB PO DAILY, (Reported) Scheduled PRN Albuterol Sulfate (Proair Hfa Inhaler), 1 PUFF INH PRN Q6HRS PRN for SHORTNESS OF BREATH Miscellaneous Medications Cholecalciferol (Vitamin D3) (Vitamin D-3), 2,000 UNIT PO, (Reported) [place]-3 Fatty Acids/Fish Oil (Fish Oil 1,000 Mg Capsule), 1 EACH PO, (Reported) TIFFANY KEARNS MD Feb 04, 2017 11:12
--- NOTE | 2017-02-04 13:55 | PDOC ---
Provider Note Provider Note IDALMIS Davidson [facility] today follow up next week ok to shower no lifting, driving d/w pt and her JOSE DERAS MD Feb 04, 2017 13:55
== END 2017-02-04 15:39 | disposition home or self-care (01) | DRG 330 ==
LOC: 4 NORTH 01-29 00:11
PROVIDERS: ADMIT Internal Medicine; ATTEND Internal Medicine
PROC: 0DJW4ZZ Inspection of Peritoneum, Percutaneous Endoscopic Approach (ICD-10-PCS; 2017-01-29)
PROC: BT041ZZ Plain Radiography of Kidneys, Ureters and Bladder using Low Osmolar Contrast (ICD-10-PCS; 2017-01-29)
PROC: 0DSH0ZZ Reposition Cecum, Open Approach (ICD-10-PCS; principal; 2017-01-29 18:30)
DX: K46.0 Unspecified abdominal hernia with obstruction, without gangrene (principal); R65.10 Systemic inflammatory response syndrome (SIRS) of non-infectious origin without acute organ dysfunction; J45.909 Unspecified asthma, uncomplicated; E87.6 Hypokalemia; Z79.51 Long term (current) use of inhaled steroids; Z79.899 Other long term (current) drug therapy; Z82.49 Family history of ischemic heart disease and other diseases of the circulatory system; Z90.49 Acquired absence of other specified parts of digestive tract
CPT/HCPCS: 36415; 74000; 74250; 80048; 80076; 83690; 85027; 87071; 87075; 87205; 94250; 94640; 94760; G0238; J0330; J0690; J0780; J1100; J1170; J1650; J2001; J2270; J2405; J2543; J2704; J2710; J3010; J3480; J3490; J7030; J7120; J7626; S0028; 97110; 97116; 97530